=== PATIENT | male | born 1960 | race Caucasian/White ===

== ENCOUNTER 2021-03-21 00:11 | Observation (INO) | payer BC ==
[2021-03-21] MEDS ORDERED: SODIUM CHLORIDE 0.9% 1,000 ML IV STA (00:36)
--- NOTE | 2021-03-21 00:40 | ED ---
Recheck HPI - General Chief Complaint: Altered Mental Status Stated Complaint: Poss CVA Time Seen by Provider: 03/21/21 00:23 Source: patient, family, RN notes reviewed, old records reviewed Mode of arrival: EMS Limitations: altered mental status, physical limitation - History of Present Illness Initial Comments: This is a 52-year-old male has a history of high blood pressure high cholesterol coming in for neurological complaint likely CVA. Patient is accepted from outside facility for evaluation by neurology regarding stroke. Patient has been acting increasingly strange for the last 4 days both by work and his 's standards. Speaking inappropriately saying things at all makes sense laughing and chronic and can sometimes even crying uncontrollably. Patient has been going through activities of daily living. Patient herself has no complaints but is a poor strain secondary to clinical condition MD Complaint: other (Likely CVA) -: days(s) (4) Symptoms Since Prior Visit: no new symptoms Context: other (none) Associated Symptoms: none Treatments Prior to Arrival: other (none) - Related Data Allergies Allergy/AdvReac Type Severity Reaction Status Date / Time No Known Allergies Allergy Verified 03/21/21 00:31 Review of Systems ROS Statement: Those systems with pertinent positive or pertinent negative responses have been documented in the HPI. ROS Other: All systems not noted in ROS Statement are negative. Past Medical History Past Medical History: Hypertension History of Any Multi-Drug Resistant Organisms: None Reported Past Surgical History: Joint Replacement Past Psychological History: Anxiety Smoking Status: Former smoker Past Alcohol Use History: Occasional General Exam - General Exam Comments Initial Comments: NIH of 4 Both expressive and receptive aphasia Symptoms for 4 days Limitations: altered mental status, physical limitation General appearance: alert, in no apparent distress Head exam: Present: atraumatic, normocephalic, normal inspection Eye exam: Present: normal appearance, PERRL, EOMI. Absent: scleral icterus, conjunctival injection, periorbital swelling ENT exam: Present: normal exam, mucous membranes moist Neck exam: Present: normal inspection. Absent: tenderness, meningismus, lymphadenopathy Respiratory exam: Present: normal lung sounds bilaterally. Absent: respiratory distress, wheezes, rales, rhonchi, stridor Cardiovascular Exam: Present: regular rate, normal rhythm, normal heart sounds. Absent: systolic murmur, diastolic murmur, rubs, gallop, clicks GI/Abdominal exam: Present: soft, normal bowel sounds. Absent: distended, tenderness, guarding, rebound, rigid Extremities exam: Present: normal inspection, full ROM, normal capillary refill. Absent: tenderness, pedal edema, joint swelling, calf tenderness Back exam: Present: normal inspection Neurological exam: Present: alert, oriented X3, CN II-XII intact Psychiatric exam: Present: normal affect, normal mood Skin exam: Present: warm, dry, intact, normal color. Absent: rash Course Vital Signs 03/21/21 03/21/21 00:21 01:36 Temperature 98 F Pulse Rate 82 83 Respiratory 18 18 Rate Blood Pressure 163/94 153/93 O2 Sat by Pulse 97 98 Oximetry - Reevaluation(s) Reevaluation #1: 03/21/21 03:13 Medical record is reviewed 03/21/21 03:14 History paperwork is reviewed and did speak with transferring physician 03/21/21 03:15 TP candidate secondary to a transfer, B4 days of symptoms Reevaluation #2: 03/21/21 03:14 Patient has no improvement in neurological complaint here in the ER Reevaluation #3: 03/21/21 03:14 Family members at bedside informed of results - Consultations Consultation #1: Spoke with [facility] who will admit the [facility] Medical Decision Making - Medical Decision Making 52 male accepted in transfer for evaluation regarding altered mental status. Patient does have both expressive and receptive aphasia, will admit for neurology to evaluate, blood pressure is much improved from initial hypertensive crisis at outside facility. Patient will admit for neurology to evaluate - Lab Data Result diagrams: 03/21/21 00:50 03/21/21 00:50 Lab Results 03/21/21 03/21/21 03/21/21 Range/Units 00:50 00:50 00:50 WBC 9.5 (3.8-10.6) k/uL RBC 4.72 (4.30-5.90) m/uL Hgb 14.1 (13.0-17.5) gm/dL Hct 43.0 (39.0-53.0) % MCV 91.1 (80.0-100.0) fL MCH 29.9 (25.0-35.0) pg MCHC 32.9 (31.0-37.0) g/dL RDW 11.7 (11.5-15.5) % Plt Count 296 (150-450) k/uL MPV 7.3 Neutrophils % 80 % Lymphocytes % 12 % Monocytes % 5 % Eosinophils % 1 % Basophils % 1 % Neutrophils # 7.6 (1.3-7.7) k/uL Lymphocytes # 1.2 (1.0-4.8) k/uL Monocytes # 0.5 (0-1.0) k/uL Eosinophils # 0.1 (0-0.7) k/uL Basophils # 0.1 (0-0.2) k/uL PT 10.1 (9.0-12.0) sec INR 0.9 (<1.2) APTT 21.1 L (22.0-30.0) sec VBG pH (7.31-7.41) VBG pCO2 (37-51) mmHg VBG HCO3 (24-28) mmol/L Sodium (137-145) mmol/L Potassium (3.5-5.1) mmol/L Chloride (98-107) mmol/L Carbon Dioxide (22-30) mmol/L Anion Gap mmol/L BUN (9-20) mg/dL Creatinine (0.66-1.25) mg/dL Est GFR (CKD-EPI)AfAm (>60 ml/min/1.73 sqM) Est GFR (CKD-EPI)NonAf (>60 ml/min/1.73 sqM) Glucose (74-99) mg/dL Calcium (8.4-10.2) mg/dL Total Bilirubin (0.2-1.3) mg/dL AST (17-59) U/L ALT (4-49) U/L Alkaline Phosphatase (38-126) U/L Ammonia (<30) umol/L Troponin I (0.000-0.034) ng/mL Total Protein (6.3-8.2) g/dL Albumin (3.5-5.0) g/dL Urine Color Yellow Urine Appearance Clear (Clear) Urine pH 5.5 (5.0-8.0) Ur Specific Barrow 1.015 (1.001-1.035) Urine Protein Negative (Negative) Urine Glucose (UA) Negative (Negative) Urine Ketones 1+ H (Negative) Urine Blood Negative (Negative) Urine Nitrite Negative (Negative) Urine Bilirubin Negative (Negative) Urine Urobilinogen <2.0 (<2.0) mg/dL Ur Leukocyte Esterase Negative (Negative) Salicylates mg/dL Urine Opiates Screen Not Detected (NotDetected) Ur Oxycodone Screen Not Detected (NotDetected) Urine Methadone Screen Not Detected (NotDetected) Ur Propoxyphene Screen Not Detected (NotDetected) Acetaminophen ug/mL Ur Barbiturates Screen Not Detected (NotDetected) U Tricyclic Antidepress Not Detected (NotDetected) Ur Phencyclidine Scrn Not Detected (NotDetected) Ur Amphetamines Screen Not Detected (NotDetected) U Methamphetamines Scrn Not Detected (NotDetected) U Benzodiazepines Scrn Not Detected (NotDetected) Urine Cocaine Screen Not Detected (NotDetected) U Marijuana (THC) Screen Not Detected (NotDetected) Serum Alcohol mg/dL Coronavirus (PCR) (Not Detectd) 03/21/21 03/21/21 03/21/21 Range/Units 00:50 00:50 00:50 WBC (3.8-10.6) k/uL RBC (4.30-5.90) m/uL Hgb (13.0-17.5) gm/dL Hct (39.0-53.0) % MCV (80.0-100.0) fL MCH (25.0-35.0) pg MCHC (31.0-37.0) g/dL RDW (11.5-15.5) % Plt Count (150-450) k/uL MPV Neutrophils % % Lymphocytes % % Monocytes % % Eosinophils % % Basophils % % Neutrophils # (1.3-7.7) k/uL Lymphocytes # (1.0-4.8) k/uL Monocytes # (0-1.0) k/uL Eosinophils # (0-0.7) k/uL Basophils # (0-0.2) k/uL PT (9.0-12.0) sec INR (<1.2) APTT (22.0-30.0) sec VBG pH (7.31-7.41) VBG pCO2 (37-51) mmHg VBG HCO3 (24-28) mmol/L Sodium 137 (137-145) mmol/L Potassium 4.2 (3.5-5.1) mmol/L Chloride 104 (98-107) mmol/L Carbon Dioxide 22 (22-30) mmol/L Anion Gap 11 mmol/L BUN 16 (9-20) mg/dL Creatinine 1.03 (0.66-1.25) mg/dL Est GFR (CKD-EPI)AfAm >90 (>60 ml/min/1.73 sqM) Est GFR (CKD-EPI)NonAf 80 (>60 ml/min/1.73 sqM) Glucose 97 (74-99) mg/dL Calcium 9.5 (8.4-10.2) mg/dL Total Bilirubin 1.2 (0.2-1.3) mg/dL AST 33 (17-59) U/L ALT 17 (4-49) U/L Alkaline Phosphatase 77 (38-126) U/L Ammonia <9 (<30) umol/L Troponin I <0.012 (0.000-0.034) ng/mL Total Protein 7.6 (6.3-8.2) g/dL Albumin 4.4 (3.5-5.0) g/dL Urine Color Urine Appearance (Clear) Urine pH (5.0-8.0) Ur Specific Barrow (1.001-1.035) Urine Protein (Negative) Urine Glucose (UA) (Negative) Urine Ketones (Negative) Urine Blood (Negative) Urine Nitrite (Negative) Urine Bilirubin (Negative) Urine Urobilinogen (<2.0) mg/dL Ur Leukocyte Esterase (Negative) Salicylates 1.1 mg/dL Urine Opiates Screen (NotDetected) Ur Oxycodone Screen (NotDetected) Urine Methadone Screen (NotDetected) Ur Propoxyphene Screen (NotDetected) Acetaminophen <10.0 ug/mL Ur Barbiturates Screen (NotDetected) U Tricyclic Antidepress (NotDetected) Ur Phencyclidine Scrn (NotDetected) Ur Amphetamines Screen (NotDetected) U Methamphetamines Scrn (NotDetected) U Benzodiazepines Scrn (NotDetected) Urine Cocaine Screen (NotDetected) U Marijuana (THC) Screen (NotDetected) Serum Alcohol <10 mg/dL Coronavirus (PCR) (Not Detectd) 03/21/21 03/21/21 Range/Units 01:00 01:09 WBC (3.8-10.6) k/uL RBC (4.30-5.90) m/uL Hgb (13.0-17.5) gm/dL Hct (39.0-53.0) % MCV (80.0-100.0) fL MCH (25.0-35.0) pg MCHC (31.0-37.0) g/dL RDW (11.5-15.5) % Plt Count (150-450) k/uL MPV Neutrophils % % Lymphocytes % % Monocytes % % Eosinophils % % Basophils % % Neutrophils # (1.3-7.7) k/uL Lymphocytes # (1.0-4.8) k/uL Monocytes # (0-1.0) k/uL Eosinophils # (0-0.7) k/uL Basophils # (0-0.2) k/uL PT (9.0-12.0) sec INR (<1.2) APTT (22.0-30.0) sec VBG pH 7.56 H (7.31-7.41) VBG pCO2 22 L (37-51) mmHg VBG HCO3 19 L (24-28) mmol/L Sodium (137-145) mmol/L Potassium (3.5-5.1) mmol/L Chloride (98-107) mmol/L Carbon Dioxide (22-30) mmol/L Anion Gap mmol/L BUN (9-20) mg/dL Creatinine (0.66-1.25) mg/dL Est GFR (CKD-EPI)AfAm (>60 ml/min/1.73 sqM) Est GFR (CKD-EPI)NonAf (>60 ml/min/1.73 sqM) Glucose (74-99) mg/dL Calcium (8.4-10.2) mg/dL Total Bilirubin (0.2-1.3) mg/dL AST (17-59) U/L ALT (4-49) U/L Alkaline Phosphatase (38-126) U/L Ammonia (<30) umol/L Troponin I (0.000-0.034) ng/mL Total Protein (6.3-8.2) g/dL Albumin (3.5-5.0) g/dL Urine Color Urine Appearance (Clear) Urine pH (5.0-8.0) Ur Specific Barrow (1.001-1.035) Urine Protein (Negative) Urine Glucose (UA) (Negative) Urine Ketones (Negative) Urine Blood (Negative) Urine Nitrite (Negative) Urine Bilirubin (Negative) Urine Urobilinogen (<2.0) mg/dL Ur Leukocyte Esterase (Negative) Salicylates mg/dL Urine Opiates Screen (NotDetected) Ur Oxycodone Screen (NotDetected) Urine Methadone Screen (NotDetected) Ur Propoxyphene Screen (NotDetected) Acetaminophen ug/mL Ur Barbiturates Screen (NotDetected) U Tricyclic Antidepress (NotDetected) Ur Phencyclidine Scrn (NotDetected) Ur Amphetamines Screen (NotDetected) U Methamphetamines Scrn (NotDetected) U Benzodiazepines Scrn (NotDetected) Urine Cocaine Screen (NotDetected) U Marijuana (THC) Screen (NotDetected) Serum Alcohol mg/dL Coronavirus (PCR) Not Detected (Not Detectd) - EKG Data -: EKG Interpreted by Me (EKG shows sinus rhythm 70. 128 QRS 60 CA QTc 451) - Radiology Data Radiology results: report reviewed (CT brain CT had neck is negative for acute disease), image reviewed Disposition Clinical Impression: Altered mental status, CVA (cerebral vascular accident), Hypertensive emergency Disposition: ADMITTED IP TO THIS [facility] Condition: Fair Is patient prescribed a controlled substance at d/c from ED?: No Referrals: Alexander Mar MD [Primary Care Provider] - 1-2 days
[2021-03-21 01:15] LABS: Basophils # (A) 0.1 k/uL (0-0.2); Basophils % (A) 1 %; Eosinophils # (A) 0.1 k/uL (0-0.7); Eosinophils % (A) 1 %; HGB 14.1 gm/dL (13.0-17.5); Lymphocytes # (A) 1.2 k/uL (1.0-4.8); Lymphocytes % (A) 12 %; MCH 29.9 pg (25.0-35.0); MCHC 32.9 g/dL (31.0-37.0); MCV 91.1 fL (80.0-100.0); Mean Platelet Volume 7.3; Monocytes # (A) 0.5 k/uL (0-1.0); Monocytes % (A) 5 %; Neutrophils # (A) 7.6 k/uL (1.3-7.7); Neutrophils % (A) 80 %; Platelet Count 296 k/uL (150-450); RBC 4.72 m/uL (4.30-5.90); RDW 11.7 % (11.5-15.5); WBC 9.5 k/uL (3.8-10.6)
[2021-03-21 01:32] LABS: INR 0.9 (<1.2); Partial Thromboplastin Time 21.1 sec (22.0-30.0); Prothrombin Time 10.1 sec (9.0-12.0)
[2021-03-21 01:33] LABS: ALT 17 U/L (4-49); AST 33 U/L (17-59); Acetaminophen <10.0 ug/mL; African American GFR (CKD) >90 (>60 ml/min/1.73 sqM); Albumin 4.4 g/dL (3.5-5.0); Alcohol <10 mg/dL; Alkaline Phosphatase 77 U/L (38-126); Anion Gap 11 mmol/L; Blood Urea Nitrogen 16 mg/dL (9-20); Calcium 9.5 mg/dL (8.4-10.2); Carbon Dioxide 22 mmol/L (22-30); Chloride 104 mmol/L (98-107); Glucose 97 mg/dL (74-99); Non-African American GFR(CKD) 80 (>60 ml/min/1.73 sqM); Salicylate 1.1 mg/dL; Sodium 137 mmol/L (137-145); Total Bilirubin 1.2 mg/dL (0.2-1.3); Total Protein 7.6 g/dL (6.3-8.2)
[2021-03-21 01:35] LABS: Potassium 4.2 mmol/L (3.5-5.1)
[2021-03-21 01:42] LABS: VBG PH 7.56 (7.31-7.41)
--- NOTE | 2021-03-21 02:09 | CT ---
EXAMINATION TYPE: CT brain wo con DATE OF EXAM: 03/21/2021 COMPARISON: None HISTORY: ams CT DLP: 1652.3 mGycm Automated exposure control for dose reduction was used. Images obtained of the brain without contrast. There is cerebral cortical atrophy. There is no mass effect nor midline shift. There is no sign of in tracranial hemorrhage. Calvarium is intact. IMPRESSION: Cerebral atrophy. No acute intracranial abnormality.
--- NOTE | 2021-03-21 02:25 | CT ---
EXAMINATION TYPE: CT angio head neck DATE OF EXAM: 03/21/2021 COMPARISON: None HISTORY: stroke CT DLP: 1652.3 mGycm Automated exposure control for dose reduction was used. CONTRAST: Performed with IV Contrast, patient injected with 65 mL of Isovue 370. Images obtained from the aortic arch to the vertex of the brain with IV contrast. There is normal branching pattern of the great vessels on the aortic arch. There is bilateral arteria l flow in the subclavian arteries. There is arterial flow in the common internal and external carotid arteries bilaterally. There is arterial flow in the vertebral arteries. Left vertebral artery is lar nidia than the right. There is minimal plaque at the carotid artery bifurcations. There is less than 10 % stenosis on the right side and less than 5% stenosis on the left side. There is no evidence of prasad tid or vertebral artery aneurysm or dissection. There is arterial flow in the vertebrobasilar artery system. There is some ectasia of the intracrania l internal carotid arteries. There is arterial flow in the anterior middle and posterior cerebral art eries. I see no evidence of intracranial arterial stenosis. There is no mass effect. There is no evid ence of intracranial aneurysm or neovascularity. There is normal enhancement of the venous sinuses. IMPRESSION: Negative CT angiogram of the brain. Minimal plaque at the carotid artery bifurcations without any significant stenosis.
[2021-03-21 03:04] LABS: Amphetamine Screen,Urine Not Detected (NotDetected); Barbiturate Screen,Urine Not Detected (NotDetected); Benzodiazepines Screen,Urine Not Detected (NotDetected); Cocaine Screen,Urine Not Detected (NotDetected); Methadone Screen, Urine Not Detected (NotDetected); Opiate Screen,Urine Not Detected (NotDetected); Oxycodone Screen, Urine Not Detected (NotDetected); Phencyclidine Screen,Urine Not Detected (NotDetected); Tricyclic Antidepressant,Urine Not Detected (NotDetected); Urn Cannabinoid Scrn Not Detected (NotDetected)
[2021-03-21 03:07] LABS: Appearance,Urine Clear (Clear); Bilirubin,Urine Negative (Negative); Blood,Urine Negative (Negative); Color,Urine Yellow; Glucose,Urine (UA) Negative (Negative); Ketones,Urine 1+ (Negative); Leukocyte Esterase,Urine Negative (Negative); Nitrite,Urine Negative (Negative); PH, Urine 5.5 (5.0-8.0); Protein,Urine Negative (Negative); Specific Gravity,Urine 1.015 (1.001-1.035); Urobilinogen,Urine <2.0 mg/dL (<2.0)
[2021-03-21] MEDS ORDERED: ASPIRIN 325 MG TAB PO STA (03:16)
[2021-03-21] MEDS: SODIUM CHLORIDE 0.9% 1,000 ML IV SCH ×2 (05:36→17:00)
[2021-03-21] MEDS: lamoTRIgine 100 MG TAB PO SCH (13:15)
[2021-03-21] MEDS: HEPARIN SODIUM,PORCINE/PF 5,000 UNIT/0.5 ML SYRINGE SQ SCH ×2 (13:22→20:24)
[2021-03-21] MEDS: FAMOTIDINE 20 MG/2 ML VIAL IV SCH ×2 (13:22→20:24)
[2021-03-21] MEDS: lisinopriL 20 MG TAB PO SCH (13:23)
[2021-03-21] MEDS: hydroCHLOROthiazide 12.5 MG CAP PO SCH (13:23)
[2021-03-21 16:33] LABS: Glucose,Whole Blood 83 mg/dL (75-99)
--- NOTE | 2021-03-21 17:08 | ECHOF ---
Referral Reason:Thrombus MEASUREMENTS -------- HEIGHT: 167.6 cm WEIGHT: 104.3 kg BP: 159/96 RVIDd: 3.2 cm (< 3.3) IVSd: 1.4 cm (0.6 - 1.1) LVIDd: 3.9 cm (3.9 - 5.3) LVPWd: 1.5 cm (0.6 - 1.1) IVSs: 1.9 cm LVIDs: 2.6 cm LVPWs: 1.7 cm LA Diam: 3.1 cm (2.7 - 3.8) Ao Diam: 2.8 cm (2.0 - 3.7) AV Cusp: 1.7 cm (1.5 - 2.6) MV EXCURSION: 13.883 mm (> 18.000) MV EF SLOPE: 42 mm/s (70 - 150) EPSS: 0.9 cm MV E Hector: 1.03 m/s MV DecT: 214 ms MV A Hector: 1.22 m/s MV E/A Ratio: 0.85 FINDINGS -------- Resting tachycardia (HR>100bpm). This was a technically adequate study. The left ventricular size is normal. There is moderate concentric left ventricular hypertrophy. O verall left ventricular systolic function is normal with, an EF between 60 - 65 %. The right ventricle is normal in size. Normal LA size by volume 22+/-6 ml/m2. The right atrium is normal in size. Interatrial and interventricular septum intact. The aortic valve is trileaflet, and appears structurally normal. No aortic stenosis or regurgitation. The mitral valve is normal. The tricuspid valve appears structurally normal. Unable to estimate RVSP due to inadequate TR jet s pectral doppler profile. Trace/mild (physiologic) pulmonic regurgitation. The aortic root size is normal. Normal inferior vena cava with normal inspiratory collapse consistent with estimated right atrial pre ssure of 5 mmHg. There is no pericardial effusion. CONCLUSIONS -------- 1. The left ventricular size is normal. 2. There is moderate concentric left ventricular hypertrophy. 3. Overall left ventricular systolic function is normal with, an EF between 60 - 65 %. 4. The aortic valve is trileaflet, and appears structurally normal. No aortic stenosis or regurgitati on. 5. Trace/mild (physiologic) pulmonic regurgitation. 6. There is no pericardial effusion. MANAGER WAREHOUSE: Fidelia Lee RDCS
[2021-03-21 20:21] LABS: Glucose,Whole Blood 152 mg/dL (75-99)
[2021-03-21] MEDS: ATORVASTATIN 40 MG TAB PO SCH (20:24)
[2021-03-22 00:20] LABS: Folate, Serum 14.3 ng/mL (4.40-31.00)
[2021-03-22] MEDS: SODIUM CHLORIDE 0.9% 1,000 ML IV SCH ×3 (05:43→20:52)
--- NOTE | 2021-03-22 09:20 | P.CNNES ---
History of Present Illness Consult date: 03/21/21 Requesting physician: Sergei Oropeza Reason for Consult: CVA History of Present Illness: This is a Tele-neurology consultation performed today on 03/21/2021. 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 EMS flow sheet not available in the chart. Patient not able to provide any history. Patient's was present, who provided the history. Patient apparently has been "not acting like himself" since last Tuesday evening, 03/18/2021. He appears more disoriented. He responds to sentences like stalling. He blurts out words and sentences, like "I know who did it". Or he would say "I know who is trying to get me", or "I know who did it", and he refers to his coworker. He is also paranoid, like something is going to attack him. He believes his boss, his , and his daughter are after him, someone is trying to put a sting on him. No report of hallucinations. He has not started any new medication. Patient has been on lamotrigine for anxiety for long time. He is under a lot of stress at work for last couple years. Last night he did not sleep, as he would continue to blurt out words. Therefore his brought him to the hospital. No report of problem with balance except for his baseline problem with his hip. No slurred speech, facial droop, or any visual issues reported. Patient's boss and coworkers also have reported that he is not acting right. He never had this kind of episode before. He is otherwise healthy and active. He socially drinks, does not smoke, no report of any injury or fall or concussion. Patient's denies any history of diagnosis of depression although she does feel that he may be depressed a bit. Patient's blood pressure at the home was very elevated, 228/100. Vital signs on arrival blood pressure 163/94, pulse rate 82, temperature 98.0. Patient's blood test shows normal CBC, PT/PTT, normal chem 20, negative troponin. Urine drug screen is negative. Blood alcohol level negative. Martinez virus PCR negative. Patient's computed tomography scan of head showed cerebral atrophy, no acute process. CTA of the head and neck revealed minimal plaque at the carotid artery bifurcations without any significant stenosis. Negative CTA of the brain. EKG shows normal sinus rhythm, minimal voltage criteria for LVH. Patient's home medications include Lamictal 150 mg daily, Crestor 20 mg, etc. seen 10 mg, lisinopril 20 mg, HCTZ 12.5 mg and ibuprofen. Patient does not take any antiplatelet medication at home. Patient does have hypertension. No diabetes. Review of Systems Patient denies headache. No fever or chills. Denies any problem with balance besides the problem with the hip. Patient did not elect to answer for any other review of systems because of his mentation. Past Medical History Past Medical History: Hypertension History of Any Multi-Drug Resistant Organisms: None Reported Past Surgical History: Joint Replacement Past Psychological History: Anxiety Smoking Status: Former smoker Past Alcohol Use History: Occasional Medications and Allergies Home Medications Medication Instructions Recorded Confirmed Type Cetirizine HCl 10 mg PO DAILY PRN 03/21/21 03/21/21 History Ibuprofen [Motrin Ib] 800 mg PO Q8H PRN 03/21/21 03/21/21 History Rosuvastatin [Crestor] 20 mg PO HS 03/21/21 03/21/21 History hydroCHLOROthiazide [Hydrodiuril] 12.5 mg PO DAILY 03/21/21 03/21/21 History lamoTRIgine [LaMICtal] 150 mg PO DAILY 03/21/21 03/21/21 History lisinopriL 20 mg PO DAILY 03/21/21 03/21/21 History Allergies Allergy/AdvReac Type Severity Reaction Status Date / Time No Known Allergies Allergy Verified 03/21/21 07:49 Physical Examination - Vital Signs Vital Signs: Vital Signs Temp Pulse Resp BP Pulse Ox 03/21/21 07:31 98.4 F 87 16 140/91 98 03/21/21 05:33 86 18 159/96 99 03/21/21 01:36 83 18 153/93 98 03/21/21 00:21 98 F 82 18 163/94 97 Intake and Output 03/20/21 03/21/21 03/21/21 22:59 06:59 14:59 Other: Weight 104.326 kg Patient is a middle aged male, in no acute distress. Patient has a flat affect. Patient is alert awake, had slow mentation, often prolonged latency time to answer questions. Patient would look at you and appears that he does not want to answer. Patient knows his name and states it is March and the year is 2020 and that he is in [facility]. He knows name of the current presid ent Smith Oliveira. Speech and language functions are normal. Attention, concentration and fund of knowledge is limited. When I asked the patient if he had any headaches, patient replied "just my ", and then started smiling. He admits to the hip hurting. Patient states his hip surgery was on 04/03/1996, although it was just last year on 04/15/2020. On cranial examination, pupils are equal, round and reacting to light. Patient elects not to answer or respond for visual field testing. His extraocular muscles are intact with no nystagmus. Face is symmetric. Patient would not elect to protrude out his tongue despite multiple attempts by us and even patient's . He did not cooperate for testing for palatal elevation or sensation. His hearing and shoulder shrug normal. On muscle strength testing, there is no pronator drift and the strength is normal in arms and legs distally and proximally, except left hip flexion which is slightly weak likely related to previous hip issues. Deep tendon reflexes are symmetric, 2 at the biceps, 1 bit radialis 1 at the knees and plantars are withdrawal bilaterally. Sensory to touch is equal with no neglect. Cerebellar function showed no ataxia for [id number] testing. Tone and bulk of muscles normal. Gait not checked. On general examination, there is no carotid bruit or murmur, S1-S2 audible. Abdomen is soft nontender. Chest is clear. Peripheral pulses are present. No edema. Results - Laboratory Findings CBC and BMP: 03/21/21 00:50 03/21/21 00:50 Abnormal Lab Findings: Abnormal Labs 03/21/21 03/21/21 03/21/21 00:50 00:50 01:00 APTT 21.1 L VBG pH 7.56 H VBG pCO2 22 L VBG HCO3 19 L Urine Ketones 1+ H Assessment and Plan Assessment: * 60-year-old male with 3 day history of acute onset of altered mental status, paranoia with delusions. Patient neurological examination is nonfocal. However he has a very flat affect, blurts out sentences randomly, not related to the situation. Patient is showing odd behavior, as he would cooperate with certain aspects of examination and obviously declines to cooperate with some other aspects of examination (like visual lr, checking for tongue protrusion). Rule out acute psychosis, depression. CVA or encephalitis much less likely. No signs of infection. * Hypertension Plan: * Patient will undergo MRI of the brain to rule out an acute stroke or other structural abnormality. * B12, folate, TSH, RPR, lipid panel, Lamictal level, lipid panel. Ammonia is normal <9 * Psychiatric consultation for altered mental status, rule out depression with psychosis. * Start aspirin 325 mg daily. * We will follow. Thank you for the consult.
--- NOTE | 2021-03-22 09:38 | P.HPIM ---
History of Present Illness This is a pleasant 60 years old male with past medical history of hypertension, hyperlipidemia. Patient is accepted from outside facility for evaluation by neurology regarding stroke. Patient has been acting increasingly strange for the last 4 days both by work and his 's standards. Speaking inappropriately saying things at all makes sense laughing and chronic and can sometimes even crying uncontrollably. Patient was transferred from [facility] for possible CVA/altered mental status, Versus a strange behavior. Patient is poor historian and information were obtained with the help with his at bedside. She states this started last Tuesday about 3-4 days ago, where he stopped treating his vital which usu ally he does. He wasn't eating and he did not wish TV and the news which is something he does every day. And when he went to work her coworkers called her stating that his behavioral strange as well. Patient sitting,, sometimes stairs at me and does not answer my questions promptly, I have to repeated 2-3 times. Sometimes his answers are unrelated to the questions. However he knows he is in [facility] he knew the date of the name of the president. He denies headache, weakness or numbness in extremities. No blurred vision or slurred speech. He is on Lamictal for mood and diagnosed with anxiety before, he is taken for many years and not sure if he has a psychiatrist. Hemodynamically stable, blood pressure this morning is 140/91 Labs including CBC, INR, BMP and liver enzymes are unremarkable. Urinalysis showed 1+ ketone otherwise is unremarkable. Salicylate is negative at 1.1, seroma: Less than 10. Urine drug screen is negative. Acetaminophen blood is less than 10. Coronavirus not detected EKG showing normal sinus rhythm at 85, no significant ST T changes. CTA of the head and neck is negative CT of brain: No acute process. Cerebral atrophy in Emergency room he received aspirin 325 mg. And admitted with a neurology consult. Review of Systems CONSTITUTIONAL: No fever, no malaise, no fatigue. HEENT: No recent visual problems or hearing problems. Denied any sore throat. CARDIOVASCULAR: No orthopnea, PND, no palpitations, no syncope. PULMONARY: No shortness of breath, no cough, no hemoptysis. GASTROINTESTINAL: No diarrhea, no nausea, no vomiting, no abdominal pain. Normoactive bowel sounds. NEUROLOGICAL: No headaches, no weakness, no numbness. HEMATOLOGICAL: Denies any bleeding or petechiae. GENITOURINARY: Denies any burning micturition, frequency, or urgency. MUSCULOSKELETAL/RHEUMATOLOGICAL: Denies any joint pain, swelling, or any muscle pain. ENDOCRINE: Denies any polyuria or polydipsia. Past Medical History Past Medical History: Hypertension History of Any Multi-Drug Resistant Organisms: None Reported Past Surgical History: Joint Replacement Past Psychological History: Anxiety Smoking Status: Former smoker Past Alcohol Use History: Occasional Medications and Allergies Home Medications Medication Instructions Recorded Confirmed Type Cetirizine HCl 10 mg PO DAILY PRN 03/21/21 03/21/21 History Ibuprofen [Motrin Ib] 800 mg PO Q8H PRN 03/21/21 03/21/21 History Rosuvastatin [Crestor] 20 mg PO HS 03/21/21 03/21/21 History hydroCHLOROthiazide [Hydrodiuril] 12.5 mg PO DAILY 03/21/21 03/21/21 History lamoTRIgine [LaMICtal] 150 mg PO DAILY 03/21/21 03/21/21 History lisinopriL 20 mg PO DAILY 03/21/21 03/21/21 History Allergies Allergy/AdvReac Type Severity Reaction Status Date / Time No Known Allergies Allergy Verified 03/21/21 07:49 Physical Exam Vitals: Vital Signs Temp Pulse Resp BP Pulse Ox 03/21/21 07:31 98.4 F 87 16 140/91 98 03/21/21 05:33 86 18 159/96 99 03/21/21 01:36 83 18 153/93 98 03/21/21 00:21 98 F 82 18 163/94 97 Intake and Output 03/20/21 03/21/21 03/21/21 22:59 06:59 14:59 Other: Weight 104.326 kg -GENERAL: The patient is alert and oriented x3, not in any acute distress. obese . Staring and time and answers questions inappropriately at times. HEENT: Pupils are round and equally reacting to light. EOMI. No scleral icterus. No conjunctival pallor. Normocephalic, atraumatic. No pharyngeal erythema. No thyromegaly. CARDIOVASCULAR: S1 and S2 present. No murmurs, rubs, or gallops. PULMONARY: Chest is clear to auscultation, no wheezing or crackles. ABDOMEN: Soft, nontender, nondistended, normoactive bowel sounds. No palpable organomegaly. MUSCULOSKELETAL: No joint swelling or deformity. EXTREMITIES: No cyanosis, clubbing, or pedal edema. NEUROLOGICAL: Gross neurological examination did not reveal any focal deficits. SKIN: No rashes. No petechiae Results CBC & Chem 7: 03/21/21 00:50 03/21/21 00:50 Labs: Abnormal Lab Results - Last 24 Hours (Table) 03/21/21 03/21/21 03/21/21 Range/Units 00:50 00:50 01:00 APTT 21.1 L (22.0-30.0) sec VBG pH 7.56 H (7.31-7.41) VBG pCO2 22 L (37-51) mmHg VBG HCO3 19 L (24-28) mmol/L Urine Ketones 1+ H (Negative) Assessment and Plan Assessment: Altered mental status, rule out stroke. Versus strange behavior Hypertension Hyperlipidemia Obese with BMI of 36.3 Plan: This is a pleasant 60 years old male who presents with altered mental status, rule out stroke. Continue with the neuro check Continue with aspirin Follow-up echocardiogram Neurology consult Labs and medication were reviewed.. Continue same treatment. Continue with symptomatic treatment. Resume home medication. Monitor lytes and vitals. DVT and GI prophylaxis. Further recommendations depends on the clinical course of the patient DVT prophylaxis: Subcutaneous heparin GI Prophylaxis: Pepcid PT/OT: Pending Prognosis is guarded
--- NOTE | 2021-03-22 09:46 | P.PN ---
Subjective This is a pleasant 60 years old male with past medical history of hypertension, hyperlipidemia. Patient is accepted from outside facility for evaluation by neurology regarding stroke. Patient has been acting increasingly strange for the last 4 days both by work and his 's standards. Speaking inappropriately saying things at all makes sense laughing and chronic and can sometimes even crying uncontrollably. Patient was transferred from [facility] for possible CVA/altered mental status, Versus a strange behavior. Patient is poor historian and information were obtained with the help with his at bedside. She states this started last Tuesday about 3-4 days ago, where he stopped treating his vital which usually he does. He wasn't eating and he did not wish TV and the news which is something he does every day. And when he went to work her coworkers called her stating that his behavioral strange as well. Patient sitting,, sometimes stairs at me and does not answer my questions promptly, I have to repeated 2-3 times. Sometimes his answers are unrelated to the questions. However he knows he is in [facility] he knew the date of the name of the president. He denies headache, weakness or numbness in extre mities. No blurred vision or slurred speech. He is on Lamictal for mood and diagnosed with anxiety before, he is taken for many years and not sure if he has a psychiatrist. Hemodynamically stable, blood pressure this morning is 140/91 Labs including CBC, INR, BMP and liver enzymes are unremarkable. Urinalysis showed 1+ ketone otherwise is unremarkable. Salicylate is negative at 1.1, seroma: Less than 10. Urine drug screen is negative. Acetaminophen blood is less than 10. Coronavirus not detected EKG showing normal sinus rhythm at 85, no significant ST T changes. CTA of the head and neck is negative CT of brain: No acute process. Cerebral atrophy in Emergency room he received aspirin 325 mg. And admitted with a neurology consult. 03/22/2021 Today when I walked into the room patient was laughing loudly with no apparent reason, as per at bedside he would be reluctant for 5 minutes and then started crying hardly and with a few minutes he got very angry and argumentative without violence. Patient sitting in chair comfortable, he looks oriented to the place, time and person. He denies visual or auditory hallucination or delusions. He denies headache or weakness or numbness. No blurred vision. No chest pain or dyspnea. Vitals are stable. B12 is 412. Folate is 14.3 and TSH normal at 1.5 treponema pallidum antibodies were nonreactive. is sitting at bedside all time, and states if she is going to leave her son will come to visit with his father. Discussed with staff will need to consider a family leave. Patient does not look to have capacity to make medical decision. If patient tries to leave then he cannot leave AMA and need to be petitioned, discussed with the bedside nurse this morning echocardiogram showed ejection fraction of 60-65%. Objective - Vital Signs Vital signs: Vital Signs Temp 97.8 F 03/22/21 04:00 Pulse 75 03/22/21 04:00 Resp 16 03/22/21 04:00 BP 137/92 03/22/21 04:00 Pulse Ox 100 03/22/21 04:00 Intake & Output 03/21/21 03/21/21 03/22/21 06:59 18:59 06:59 Intake Total 0 300 Balance 0 300 Weight 104.326 kg 104.326 kg 102.1 kg Intake: IV 300 Sodium Chloride 0.9% 1, 300 000 ml @ 100 mls/hr IV . Q10H CHANTAL Rx#:[id number] Oral 0 Other: # Voids 1 - Exam -GENERAL: The patient is alert and oriented x3, not in any acute distress. obese. Staring and time and answers questions inappropriately at times. HEENT: Pupils are round and equally reacting to light. EOMI. No scleral icterus. No conjunctival pallor. Normocephalic, atraumatic. No pharyngeal erythema. No thyromegaly. CARDIOVASCULAR: S1 and S2 present. No murmurs, rubs, or gallops. PULMONARY: Chest is clear to auscultation, no wheezing or crackles. ABDOMEN: Soft, nontender, nondistended, normoactive bowel sounds. No palpable organomegaly. MUSCULOSKELETAL: No joint swelling or deformity. EXTREMITIES: No cyanosis, clubbing, or pedal edema. NEUROLOGICAL: Gross neurological examination did not reveal any focal deficits. SKIN: No rashes. No petechiae -Psychiatric: The bowel movement, laughing that time and crying at times and angry at other times. No hallucination. No delusion. No aggressive behavior - Labs CBC & Chem 7: 03/21/21 00:50 03/21/21 00:50 Labs: Abnormal Lab Results - Last 24 Hours (Table) 03/21/21 Range/Units 20:20 POC Glucose (mg/dL) 152 H (75-99) mg/dL Assessment and Plan Assessment: Altered mental status, rule out stroke. Versus strange behavior. Rule out Psychosis, anxiety or depression or other mental health illness Hypertension Hyperlipidemia Obese with BMI of 36.3 Plan: This is a pleasant 60 years old male who presents with altered mental status, rule out stroke. Continue with the neuro check Continue with aspirin Neurology consult Psychiatric consult called Patient cannot leave AMA and needed to be petitioned if he tries to do that. Please keep family member/sitter at bedside. Elopement precautions Labs and medication were reviewed.. Continue same treatment. Continue with symptomatic treatment. Resume home medication. Monitor lytes and vitals. DVT and GI prophylaxis. Further recommendations depends on the clinical course of the patient DVT prophylaxis: Subcutaneous heparin GI Prophylaxis: Pepcid PT/OT: Pending Prognosis is guarded
[2021-03-22] MEDS: HEPARIN SODIUM,PORCINE/PF 5,000 UNIT/0.5 ML SYRINGE SQ SCH ×2 (10:28→20:52)
[2021-03-22] MEDS: lisinopriL 20 MG TAB PO SCH (10:29)
[2021-03-22] MEDS: ASPIRIN 325 MG TAB PO SCH (10:29)
[2021-03-22] MEDS: hydroCHLOROthiazide 12.5 MG CAP PO SCH (10:29)
[2021-03-22] MEDS: lamoTRIgine 100 MG TAB PO SCH (10:29)
[2021-03-22] MEDS: FAMOTIDINE 20 MG TAB PO SCH ×2 (10:29→20:51)
[2021-03-22] MEDS: CYANOCOBALAMIN 500 MCG TAB PO SCH (10:31)
[2021-03-22 11:47] LABS: Glucose,Whole Blood 88 mg/dL (75-99)
[2021-03-22] MEDS: LORazepam 2 MG/ML INJ IV PRN (14:49)
[2021-03-22 15:13] LABS: Chol/HDL Ratio 2.82 Ratio; LDL Cholesterol,Calculated 75.8 mg/dL (0.0-131.0); VLDL Calculation 17.2 mg/dL (5.00-40.00)
[2021-03-22] MEDS ORDERED: lamoTRIgine 100 MG TAB PO STA (20:10)
[2021-03-22] MEDS ORDERED: OLANZapine 10 MG VIAL IM PRN (20:12)
[2021-03-22] MEDS ORDERED: OLANZapine 5 MG TAB PO PRN (20:12)
[2021-03-22] MEDS: ATORVASTATIN 40 MG TAB PO SCH (20:51)
[2021-03-22] MEDS ORDERED: LORazepam 2 MG/ML INJ IV STA (23:22)
[2021-03-23] MEDS: SODIUM CHLORIDE 0.9% 1,000 ML IV SCH ×2 (06:35→15:42)
[2021-03-23] MEDS: HEPARIN SODIUM,PORCINE/PF 5,000 UNIT/0.5 ML SYRINGE SQ SCH (07:53)
[2021-03-23] MEDS: lisinopriL 20 MG TAB PO SCH (07:54)
[2021-03-23] MEDS: LORazepam 2 MG/ML INJ IV PRN (07:54)
[2021-03-23] MEDS: FAMOTIDINE 20 MG TAB PO SCH (07:54)
[2021-03-23] MEDS: hydroCHLOROthiazide 12.5 MG CAP PO SCH (07:54)
[2021-03-23] MEDS: ASPIRIN 325 MG TAB PO SCH (07:54)
[2021-03-23] MEDS: CYANOCOBALAMIN 500 MCG TAB PO SCH (07:54)
--- NOTE | 2021-03-23 08:21 | P.PN ---
Subjective Progress Note Date: 03/22/21 This is a tele-neurologic follow-up performed today on 03/22/2021. Patient's was also present today. Patient continues to have verbal outbursts, in which he would speak random words. He does get periods of agitation in which he tries to get up and trips on his feet. Ativan helped with the agitation. Per his patient's , his yelling of blurting words is slightly worse. She mentions that this morning he cried for an hour for no apparent reason. Then he started laughing for quite some time. After giving Ativan, his yelling outbursts were improved. According to patient's , he was in [place] in [place], and he may have some component of PTSD. Still awaiting psych evaluation and MRI of the brain. Objective - Vital Signs Vital signs: Vital Signs Temp 98.0 F 03/22/21 14:50 Pulse 102 H 03/22/21 14:50 Resp 16 03/22/21 14:50 BP 149/103 03/22/21 14:50 Pulse Ox 95 03/22/21 14:50 Intake & Output 03/21/21 03/22/21 03/22/21 18:59 06:59 18:59 Intake Total 0 300 420 Balance 0 300 420 Weight 104.326 kg 102.1 kg Intake: IV 300 Sodium Chloride 0.9% 1, 300 000 ml @ 100 mls/hr IV . Q10H CHANTAL Rx#:[id number] Oral 0 420 Other: # Voids 1 2 - Exam Patient is alert and awake, sitting in the recliner. He had some unusual affect. Speech and language functions appears normal. Face is symmetric. Pupils are round and reactive to light. Today patient was willing to protrude out his tongue which he did not do yesterday. His strength is normal. - Labs CBC & Chem 7: 03/21/21 00:50 03/21/21 00:50 Labs: Abnormal Lab Results - Last 24 Hours (Table) 03/21/21 Range/Units 20:20 POC Glucose (mg/dL) 152 H (75-99) mg/dL Assessment and Plan Assessment: * 60-year-old male with 3 day history of acute onset of altered mental status, paranoia with delusions. Patient neurological examination is nonfocal. However he has a very flat affect, blurts out sentences randomly, not related to the situation. Patient is showing odd behavior, as he would cooperate with certain aspects of examination and obviously declines to cooperate with some other aspects of examination (like visual lr, checking for tongue protrusion). Rule out acute psychosis, depression. CVA or encephalitis much less likely. No signs of infection. * Hypertension Plan: * Await MRI of the brain to rule out an acute stroke or other structural abnormality. * All blood workup are normal. B12 412, folate 14.3, TSH 1.55, RPR nonreactive, lipid panel with cholesterol 144, LDL 75, HDL 51 and triglycerides 86, Lamictal level 4.2 which is therapeutic, not toxic at all. Ammonia is normal <9 * Await Psychiatric consultation for altered mental status, rule out depression with psychosis. * Start aspirin 325 mg daily. * Dr. Carl Major Will resume neurology service from the morning.
--- NOTE | 2021-03-23 08:46 | MR ---
EXAMINATION TYPE: MR brain wo/w con DATE OF EXAM: 03/23/2021 COMPARISON: CT brain 03/21/2021 HISTORY: AMS CONTRAST: Performed utilizing 10 mL intravenous Gadavist gadolinium contrast. TECHNIQUE: Multiplanar, multiecho imaging on a 3.0 Batsheva magnet is performed through the brain. Stud y is performed within 24 hours of arrival to the hospital. The craniovertebral junction is normal. The pituitary is normal. Diffusion-weighted imaging is performed. No abnormal hyperintensity is present to suggest an acute i ntracranial infarct or acute ischemic change. Signal within the brain appears normal. No suspicious T2 hyperintensities or areas of abnormal enhanc ement are evident. Ventricles and sulci are appropriate for the patient age. IMPRESSIONS: 1. Normal pre and postcontrast MRI brain
[2021-03-23] MEDS ORDERED: lamoTRIgine 100 MG TAB PO SCH (09:00)
--- NOTE | 2021-03-23 09:15 | CONS ---
CONSULTATION DATE OF SERVICE: 03/22/2021. PURPOSE FOR CONSULTATION: Evaluate for altered mental status and possible CVA. HISTORY OF PRESENTING ILLNESS: The patient is a 60-year-old male. As with the previous evaluation, the patient was not able to provide any information. His provided all of the information regarding his current situation. As noted previously, he has had significant decline in function in the last 4 to 5 days, where he has unusual and disorganized behavior. His noted that he started slowing down in his speech, where he would not finish sentences. He was not functioning in a basic way at home. She noted these problems began perhaps on Tuesday, though possibly earlier than that. She noted on he seemed to be doing a little better, though he continued to have problems. He would have outbursts where he would get very loud. He could go from outbursts of laughing to outbursts of crying, both in an uncontrollable manner. On and Tuesday he was late for work, which was very unusual for him. His noted evening at dinner he would just have behavior of staring in space. On Tuesday he was only minimally responding to her. He was making odd comments such as, "I am a loser," and "I am going to quit my job." He was having difficulty following basic directions. In his history it is noted that he has had a general decline in his overall function over the last year following hip replacement surgery last March. Apparently he was laid up for about two months. Once he got back into his normal function he was showing less energy and motivation than was his general manner. Tuesday night he did not sleep most of the night. He had talked about sting operations and kept saying, "I know who did it." His notes that a departmental secretary at work noted that for perhaps the last week or last couple of weeks he was showing paranoid thinking. Since his changes on Tuesday he would have behavior where out of the blue he would start crying very intensely. He would have episodes where he would blurt out individual words that had no apparent connection with one to the other. He generally was having more problems in the morning and to some extent more problems in the evening time. His notes that going back over the last few weeks and over the last few months, she had not been noting any significant changes or difficulties. On the weekend prior to this current situation, he spent three days on [place] and was communicating appropriately and functioning pretty much at his baseline. Overall, the only changes that he has had longer-term are that since his hip surgery he has shown some physically slowing; he has appeared less motivated, especially in the last few months or longer, where he would perhaps sit on the couch and do very little. His also noted in the last year that he has had increasing sedation where he can easily fall asleep or take naps in the day. He has had issues with sleep apnea, though he does not always show that in the sleep that he has. Typically he is sleeping from about 10 at night until 6 in the morning. His notes that he has had a long history of high anxiety. In the past years he has had some episodes where he may get more intense in his functioning. He has had phases where he will seem to have elevated moods and will do things such as have impulsive spending. It is noted that over the last 2 to 3 years, the patient has been on lamotrigine. It is unclear what the indication for lamotrigine has been other than his indicating that it seems to stabilize his mood. She says if he does not take it or missed doses, he starts getting into episodes of agitation. Other than being on lamotrigine for some type of mood issues, the patient has not had other formal treatment with other psychotropic medications, nor has he been specifically diagnosed with mood disorder or thought disorder. He has been working in his current position for about 25 years and apparently has not had any significant problems in his work performance up until just in the past 5 days. His 's observations about his current situation as well as his functioning within the last year seem to parallel his neurologic exam, where he has not demonstrated any abnormal movements or general function. There has been no significant change in ambulation or general physical function. His only current psychotropic medication is lamotrigine 150 mg a day. MENTAL STATUS EXAM: Patient was sitting in his room. He had somewhat of a staring gaze. Most of the time he seemed to have a slight smile on his face. When I asked questions, he would show some kind of slight squinting or grimacing, though mostly he seemed to smile. When I would ask questions he would seem to stare, though made very little effort to answer questions. He did respond to a few cognitive questions. He was able to say it was Tuesday. When I asked him where he was, he said "[place]." Both his and I asked him numerous times how old he was, and he did not respond to that, though he ultimately stated his birthday was 1960. He had past experience, and his asked in how long he had been in the . He was able to say that he was in the [employer] for 12 years and [employer] for 11-/2 years, which she confirmed as accurate. It is noted that some of the time when I would ask questions he would give apparent flippant responses. For example, when asked how long he was in the , one response was "too long." When asked who his boss was at work, he made the statement that his was or his departmental secretary. Toward the end of the interview, which lasted about an hour, the patient began getting restless. He was sitting in a lounge chair with the foot rest up. He kicked the foot rest down. He then started kicking his feet back and forth against the chair. He seemed to move as if he was trying to prepare to stand up, though he did not actually make an effort to stand. For the most part throughout the interview he said little and mostly was silent with a staring gaze and a fixed smile on his face. ASSESSMENT: This 60-year-old male has significant alteration in mental status. Whether or not he has an underlying neurologic condition as a primary issue remains to be seen. He seems to have fairly reasonable orientation, though showing significant difficulties with communication and initiating words. From a psychiatric standpoint, some possibilities could include bipolar disorder or general mood disorder with psychotic features. His history of having episodes of quite pronounced impulsive behavior that would be outside his baseline could be an early indication of some bipolar issues. His current functioning, where he has a rapid mood changes from laughing to distress, would also be supportive of the diagnosis of either bipolar disorder or general mood disorder with psychosis. The difficulty he is having with communications could be suggestive of catatonia, given the extreme difficulties he is having with any level of communication whatsoever. The fact that he is able to demonstrate that he has basic orientation while at the same time is essentially mute except for blurting out individual random words would fit in a picture of catatonia. Certainly some of the paranoid statements he has made would further suggest psychosis. At this point, I will increase his lamotrigine from 150 mg a day up to 100 mg twice a day, given that he has shown some benefit in terms of mood issues on lamotrigine. The simplest first step would be to titrate up on lamotrigine to see if there is any benefit. I will add Zyprexa 5 mg three times a day p.o. or IM as a p.r.n. medication for agitation. The indication for Zyprexa would be for possible bipolar song as well as for possible psychosis. If he does require Zyprexa and shows some reasonable response, there might be consideration for starting a regular dose. I would consider a trial dosing of IM Ativan to assess for the possibility of catatonia. I advised Nursing to call me with updates, especially if he receives p.r.n. Zyprexa. I will continue to follow. MMCASTILLOL / IJN: [id number] /
[2021-03-23] MEDS ORDERED: LORazepam 1 MG TAB PO STA ×2 (10:38→14:47)
[2021-03-23 11:00] LABS: Basophils % (A) 1 %; Eosinophils # (A) 0.2 k/uL (0-0.7); Eosinophils % (A) 3 %; HCT 39.5 % (39.0-53.0); HGB 13.1 gm/dL (13.0-17.5); Lymphocytes # (A) 1.4 k/uL (1.0-4.8); Lymphocytes % (A) 19 %; MCH 30.8 pg (25.0-35.0); MCHC 33.2 g/dL (31.0-37.0); MCV 92.7 fL (80.0-100.0); Mean Platelet Volume 6.9; Monocytes # (A) 0.4 k/uL (0-1.0); Monocytes % (A) 6 %; Neutrophils # (A) 5.4 k/uL (1.3-7.7); Neutrophils % (A) 71 %; Platelet Count 282 k/uL (150-450); RBC 4.26 m/uL (4.30-5.90); RDW 11.8 % (11.5-15.5); WBC 7.6 k/uL (3.8-10.6)
[2021-03-23 11:09] LABS: Albumin 3.9 g/dL (3.5-5.0); Calcium 9.6 mg/dL (8.4-10.2); Potassium 4.7 mmol/L (3.5-5.1); Total Protein 6.8 g/dL (6.3-8.2)
[2021-03-23 11:41] VITALS: PULSE 76; RESP 16
--- NOTE | 2021-03-23 13:04 | P.PN ---
Subjective Progress Note Date: 03/23/21 I am Seeing the patient for the first time her neurological management. The please refer to Dr. Lenz's note for further details. Patient is accompanied by his friend and feels somewhat better. He denies of any headache, focal weakness, numbness, visual disturbance. Objective - Vital Signs Vital signs: Vital Signs Temp 98.7 F 03/23/21 07:50 Pulse 96 03/23/21 07:50 Resp 15 03/23/21 07:50 BP 153/85 03/23/21 07:50 Pulse Ox 96 03/23/21 07:50 Intake & Output 03/22/21 03/23/21 03/23/21 18:59 06:59 18:59 Intake Total 420 2600 180 Balance 420 2600 180 Weight 104.4 kg Intake: IV 1200 Sodium Chloride 0.9% 1, 1200 000 ml @ 100 mls/hr IV . Q10H CHANTAL Rx#:[id number] Oral 420 1400 180 Other: # Voids 2 4 2 - Exam GENERAL: The patient is sitting in a recliner chair having his lunch and is not in acute distress. NEUROLOGICAL: Higher mental function: The patient is awake, alert, oriented to self, place and time. Patient is following simple commands. No aphasia and no neglect. Cranial nerves: The pupils are round, equal and reactive to light and accommodation. Visual lr are full to confrontation throughout. Extraocular movement is intact no nystagmus is noted. Facial sensation is normal to touch throughout. The facial strength is normal throughout. Hearing is normal bilaterally to hand rub. Tongue is midline and moved [id number] without any difficulty. No dysarthria is noted. Shoulder shrug is normal bilaterally. Motor: Gait is deferred. The strength is 5 over 5 throughout. Normal tone and bulk. Cerebellum: Normal finger to nose bilaterally. Sensation: Sensation is normal to touch throughout. Reflexes (right/left): 2+ throughout. Plantars are downgoing bilaterally. WORK-UP: TSH is 1.55 year Folate is 14.3. Serum vitamin B12 is 412 AST is 27 and ALT of 14 Lipid panel is struggled of 86, cholesterol is 104 4, LDL is 75 and HDL 51. Martinez virus PCR was not detected that. Syphilis antibody was nonreactive Urinalysis is negative for urinary tract infection MRI of the brain with and without contrast is reported as normal - Labs CBC & Chem 7: 03/23/21 10:32 03/23/21 10:32 Labs: Abnormal Lab Results - Last 24 Hours (Table) 03/23/21 03/23/21 Range/Units 10:32 10:32 RBC 4.26 L (4.30-5.90) m/uL Chloride 108 H (98-107) mmol/L Glucose 100 H (74-99) mg/dL Assessment and Plan Assessment: * This is a 60-year-old male with 3 day history of acute onset of altered mental status, paranoia with delusions. Patient neurological examination is nonfocal. However he has a very flat affect, blurts out sentences randomly, not related to the situation. MRI Brain is negative for stroke. No signs of infection. Possible bipolar per psychiatry team or general mood disorder with psychiatric feature * Hypertension * Hyperlipidemia * Obesity with BMI of 36.3. Plan: From Neurological perspective the patient doesn't have a stroke and the we'll defer the use of antiplatelet and statin use if needed to the primary team but that she doesn't have a stroke or TIA. Psychiatry is on board We'll defer the rest of the medical management to primary team. The plan is discussed with the nurse. There is no further neurological work-up. Neurology will sign off. Please reconsult if needed. Carl Major M.D. Neuro-hospitalist Time with Patient: Less than 30
--- NOTE | 2021-03-23 15:42 | CONS ---
CONSULTATION DATE OF SERVICE: 03/23/2021 PURPOSE FOR CONSULTATION: Evaluate for altered mental status and possible CVA. INTERVAL HISTORY: Patient has continued to have some ups and downs. It is noted that the patient has received some p.r.n. Zyprexa for restlessness and agitation. It is not clear that he got much benefit from that. At 11:30 last night he received Ativan 1 mg. Nursing indicates that he slept fairly well last night and was able to sleep through a good part of the night. Staff indicated that this morning he was restless and still not communicating very well. He then received 0.5 mg of Ativan at 8:00 am prior to getting his MRI. I saw the patient at approximately 9:00 am and it is noted that he had a significant change in his mental status where he was able to communicate appropriately and had a very fluid and spontaneous conversation. I talked to the patient's and she confirmed that he was having restlessness earlier in the morning and also had struggles with communication as he had been having. After receiving the morning dose of Ativan she noted that his thoughts were much clearer. When I talked to the patient he was spontaneous and interactive. He had a calm manner and was able to speak very clearly about his current situation. He was well oriented and was aware of circumstances and surroundings. He was able to speak in a very fluid an appropriate manner with normal intonation. He generally was in a fairly good mood. He smiled some. He made some joking comments. He was not distressed in any way. He had a calm manner and was not restless. ASSESSMENT: I would diagnosis the patient with catatonia. He has shown a positive response to Ativan challenge. At this point I will start the patient on Ativan 1 mg q.4 hours. He will get a dose this morning and then get another dose in four hours. I will re- evaluate him later in the day. I anticipate that catatonia ends up being the most likely immediate diagnosis for his mental status change. I will continue him on lamotrigine. The dose has been increased to 100 mg twice a day. I would look to make a determination as to appropriate dosing of Ativan. He likely will need to be continued on Ativan for at least a number of days or weeks. In general, patients who respond appropriately to catatonia with Ativan are able to move away from Ativan to other psychotropics. Lamotrigine may be sufficient for him. I would look to have a referral to Psychiatry in outpatient followup given the more complex nature of his condition. I will continue to follow. MMODL / IJN: [id number] /
[2021-03-23 15:46] VITALS: BP 120/81; TEMP 97.5
--- NOTE | 2021-03-23 19:06 | P.DS ---
Providers Date of admission: 03/21/21 03:16 Expected date of discharge: 03/23/21 Attending physician: Deandre Sarmiento Consults: 03/21/21 03:16 Consult Physician Routine Consulting Provider: Benjamin Lenz Consult Reason/Comments: cva Do you want consulting provider notified?: Yes 03/21/21 13:57 Consult Physician Routine Consulting Provider: Jaison Turner Consult Reason/Comments: flat affect, AMS, ?depression w psychosis Do you want consulting provider notified?: Yes Primary care physician: Franklin Coppola [facility] Hospital Course: This is a pleasant 60 years old male with past medical history of hypertension, hyperlipidemia. Patient is accepted from outside facility for evaluation by neurology regarding stroke. Patient has been acting increasingly strange for the last 4 days both by work and his 's standards. Speaking inappropriately saying things at all makes sense laughing and chronic and can sometimes even crying uncontrollably. Patient was transferred from [facility] for possible CVA/altered mental status, Versus a strange behavior. Patient is poor historian and information were obtained with the help with his at bedside. She states this started l ast Tuesday about 3-4 days ago, where he stopped treating his vital which usually he does. He wasn't eating and he did not wish TV and the news which is something he does every day. And when he went to work her coworkers called her stating that his behavioral strange as well. Patient sitting,, sometimes stairs at me and does not answer my questions promptly, I have to repeated 2-3 times. Sometimes his answers are unrelated to the questions. However he knows he is in [facility] he knew the date of the name of the president. He denies headache, weakness or numbness in extremities. No blurred vision or slurred speech. He is on Lamictal for mood and diagnosed with anxiety before, he is taken for many years and not sure if he has a psychiatrist. Hemodynamically stable, blood pressure this morning is 140/91 Labs including CBC, INR, BMP and liver enzymes are unremarkable. Urinalysis showed 1+ ketone otherwise is unremarkable. Salicylate is negative at 1.1, seroma: Less than 10. Urine drug screen is negative. Acetaminophen blood is less than 10. Coronavirus not detected EKG showing normal sinus rhythm at 85, no significant ST T changes. CTA of the head and neck is negative CT of brain: No acute process. Cerebral atrophy in Emergency room he received aspirin 325 mg. And admitted with a neurology consult. 03/22/2021 Today when I walked into the room patient was laughing loudly with no apparent reason, as per at bedside he would be reluctant for 5 minutes and then started crying hardly and with a few minutes he got very angry and argumentative without violence. Patient sitting in chair comfortable, he looks oriented to the place, time and person. He denies visual or auditory hallucination or delusions. He denies headache or weakness or numbness. No blurred vision. No chest pain or dyspnea. Vitals are stable. B12 is 412. Folate is 14.3 and TSH normal at 1.5 treponema pallidum antibodies were nonreactive. is sitting at bedside all time, and states if she is going to leave her son will come to visit with his father. Discussed with staff will need to consider a family leave. Patient does not look to have capacity to make medical decision. If patient tries to leave then he cannot leave AMA and need to be petitioned, discussed with the bedside nurse this morning echocardiogram showed ejection fraction of 60-65%. 03/23/2021: Sitting up in a chair. at the bedside. stated the patient had been at lot of stress at work. Patient has not been sleeping well for a very long time. Patient been asking the how to answer questions U leave the hospital. Patient is cleared by neurology. To be transferred to psychiatry floor. [facility] Department Supervisor: Dr. Mack from psychiatry Neurology On examination: VITAL SIGNS: [98.1, 76, 16, 120/81, 98% room air] GENERAL APPEARANCE: Sitting up in a chair, awake, anxious HEENT: Normal external appearance of nose and ear. Oral cavity normal EYES: Pupils equal. Conjunctiva normal. NECK: JVD not raised. Mass not palpable. RESPIRATORY: Respiratory effort normal. Lungs clear to auscultation. CARDIOVASCULAR: First and second sounds normal. No edema. ABDOMEN: Soft. Liver and spleen not palpable. No tenderness. No mass palpable. PSYCHIATRY: Alert and oriented x3. Mood and affect anxious . INVESTIGATIONS, reviewed in the clinical context: White count 7.6 hemoglobin 13.1 platelets 22 potassium 4.7 creatinine 1.11 B12, folate, TSH: All normal Treponema pallidum antibody: Not reactive Urine drug screen:Coronavirus COVID 19 [PCR]: Not detected: Not detected Assessment and plan: -Acute catatonia. Patient was seen by today. He is given Ativan challenge. Patient accepted to 3 W. psychiatry unit -Hyperlipidemia Crestor 20 mg daily at bedtime -Essential hypertension Lisinopril 20 mg daily hydrochlorothiazide 12.5 mg daily -Obesity BMI 37.1 Weight loss measures -Social stressors at work -Chronic insomnia Disposition: Transferred to 3 W. inpatient psychiatry unit. Patient Condition at Discharge: Fair Plan - Discharge Summary Discharge Rx Participant: No New Discharge Prescriptions: No Action lamoTRIgine [LaMICtal] 150 mg PO DAILY Rosuvastatin [Crestor] 20 mg PO HS Cetirizine HCl 10 mg PO DAILY PRN PRN Reason: Allergy Symptoms lisinopriL 20 mg PO DAILY hydroCHLOROthiazide [Hydrodiuril] 12.5 mg PO DAILY Ibuprofen [Motrin Ib] 800 mg PO Q8H PRN PRN Reason: Pain Discharge Medication List Cetirizine HCl 10 mg PO DAILY PRN 03/21/21 [History] Ibuprofen [Motrin Ib] 800 mg PO Q8H PRN 03/21/21 [History] Rosuvastatin [Crestor] 20 mg PO HS 03/21/21 [History] hydroCHLOROthiazide [Hydrodiuril] 12.5 mg PO DAILY 03/21/21 [History] lamoTRIgine [LaMICtal] 150 mg PO DAILY 03/21/21 [History] lisinopriL 20 mg PO DAILY 03/21/21 [History] Follow up Appointment(s)/Referral(s): Alexander Mar MD [REFERRING] - 1-2 days Discharge Disposition: TRANSFER TO PSYCH HOSP/UNIT
== END 2021-03-23 17:24 ==
LOC: EC 00:11 → 3SCARD 03:16 → INTOOBSV 03:16 → 3SCARD 14:07 → UNDODISIN 03-23 17:24
PROVIDERS: ADMIT Hospitalist; ATTEND Hospitalist
DX: F20.2 Catatonic schizophrenia (principal); F51.04 Psychophysiologic insomnia; E78.5 Hyperlipidemia, unspecified; I16.1 Hypertensive emergency; I10 Essential (primary) hypertension; E78.00 Pure hypercholesterolemia, unspecified; Z20.822 Contact with and (suspected) exposure to COVID-19; R45.87 Impulsiveness; G47.30 Sleep apnea, unspecified; F41.9 Anxiety disorder, unspecified; E66.9 Obesity, unspecified; Z68.37 Body mass index [BMI] 37.0-37.9, adult; Z71.3 Dietary counseling and surveillance; Z79.899 Other long term (current) drug therapy; Z87.891 Personal history of nicotine dependence; Z71.89 Other specified counseling; Z96.649 Presence of unspecified artificial hip joint
CPT/HCPCS: 99285; 96376 ×3; 96372 ×4; 96375; 96361; 96374; 36415; 93005; 93306; 97161; 97165; 80061; 80053 ×2; 80175; 84443; 82607; 82140; 82746; 82803; 84484; 85025 ×2; 85610; 85730; 81003; 86780; 80306; 80143; 80320; 87635; 80179; 70496; 70450; 70498; 70553; G0378 ×3; J2060 ×2; Q9967; J1644 ×3; A9585; 96360

== ENCOUNTER 2021-03-23 15:53 | Inpatient (IN) | payer BC ==
[2021-03-23] MEDS ORDERED: IBUPROFEN 800 MG TAB PO PRN (15:55)
[2021-03-23] MEDS ORDERED: LORATADINE 10 MG TAB PO PRN (15:55)
[2021-03-23] MEDS ORDERED: MAG HYDROX/AL HYDROX/SIMETH 30 ML CUP PO PRN (15:56)
[2021-03-23] MEDS ORDERED: MAGNESIUM HYDROXIDE 2,400 MG/10 ML CUP PO PRN (15:56)
[2021-03-23] MEDS ORDERED: ACETAMINOPHEN TAB 325 MG TAB PO PRN (15:56)
[2021-03-23] MEDS ORDERED: haloperidoL 5 MG TAB PO PRN (15:58)
[2021-03-23] MEDS ORDERED: LORazepam 2 MG/ML INJ IM PRN (15:58)
[2021-03-23] MEDS ORDERED: HALOPERIDOL LACTATE 5 MG/ML 1 ML VIAL IM PRN (15:58)
[2021-03-23] MEDS: LORazepam 1 MG TAB PO SCH ×3 (18:21→23:46)
[2021-03-23] MEDS: ATORVASTATIN 40 MG TAB PO SCH (20:44)
--- NOTE | 2021-03-23 23:08 | XR ---
EXAMINATION TYPE: XR knee complete LT DATE OF EXAM: 03/23/2021 COMPARISON: NONE HISTORY: Knee pain TECHNIQUE: 5 views FINDINGS: I see no fracture nor dislocation. Joint spaces are fairly normal. There is no sign of join t effusion. IMPRESSION: Negative left knee exam.
[2021-03-24] MEDS: LORazepam 1 MG TAB PO SCH ×2 (05:06→08:26)
[2021-03-24] MEDS: lisinopriL 20 MG TAB PO SCH (08:20)
[2021-03-24] MEDS: hydroCHLOROthiazide 12.5 MG CAP PO SCH (08:20)
[2021-03-24] MEDS: LORazepam 1 MG TAB PO PRN ×2 (08:22→08:25)
[2021-03-24] MEDS ORDERED: lamoTRIgine 100 MG TAB PO SCH (09:00)
[2021-03-24] MEDS: LORazepam 0.5 MG TAB PO SCH ×3 (11:45→20:23)
--- NOTE | 2021-03-24 17:00 | P.CONS ---
History of Present Illness - Reason for Consult Consult date: 03/24/21 Medical management Requesting physician: Ta Roque - Chief Complaint Mood outburst - History of Present Illness This is a 60 years old male with past medical history of hypertension, hyperlipidemia. Patient was initially accepted to [facility] on inpatient service on March 21 and was discharged on the to the psychiatry unit. Patient has been acting increasingly strange for the last 4 days both by work and his 's standards. Speaking inappropriately saying things at all makes sense laughing and chronic and can sometimes even crying uncontrollably. Patient was transferred from [facility] for possible CVA/altered mental status, Versus a strange behavior. Patient is poor historian and information were obtained with the help with his at bedside. She states this started last Tuesday about 3-4 days ago, where he stopped treating his vital which usually he does. He wasn't eating and he did not wish TV and the news which is something he does every day. And when he went to work her coworkers called her stating that his behavioral strange as well. He is on Lamictal for mood and diagnosed with anxiety before, he is taken for many years and not sure if he has a psychiatrist. Episodes included the following on the medical floor: When my colleague had walked into the room patient was laughing loudly with no apparent reason, as per at bedside he would be reluctant for 5 minutes and then started crying hardly and with a few minutes he got very angry and argumentative without violence. Patient sitting in chair comfortable, he looks oriented to the place, time and person. He denies visual or auditory hallucination or delusions. Per the patient has not been sleeping well for a long time. Also has stress at work. Patient was seen by neurology and patient's testing that included brain MRI, 2-D echocardiogram CT angiogram CT brain, screening for syphilis were all negative. Vitamin B12, folate, TSH all normal. Patient was seen by Dr. Major from neurology and cleared for discharge to psychiatry floor. Patient had an episode where he fell to the floor and his knees yesterday. X- ray did not reveal any fracture. Patient has a sitter. Received Ativan sleeping. Review of systems: Cannot be done patient rather sleepy up receiving Ativan. Past medical history to include: Hypertension, hyperlipidemia, anxiety Social history: . No smoking. Occasional alcohol. Employed Family history: Reviewed, noncontributory to presentation Physical examination: VITAL SIGNS: [98.7, 96, 15, 153/85, 96% on room air GENERAL: [BMI 37.1, laying in bed, tired]. EYES: [Pupils equal. Conjunctiva jenna]l. HEENT: [External appearance of nose and ears normal, oral cavity grossly normal]. NECK: [JVD not raised; masses not palpable]. HEART: [First and second heart sounds are normal; no edema]. LUNGS:[ Respiratory rate normal; clear to auscultation]. ABDOMEN: [Soft, nontender, liver spleen not palpable, no masses palpable]. PSYCH: Difficult to assess rather sleepy l. NEUROLOGICAL: [Cranial nerves grossly intact; no facial asymmetry, power and sensation grossly intact]. LYMPHATICS: [No lymph nodes palpable in the axilla and neck] . INVESTIGATIONS, reviewed in the clinical context: MRI of the brain, CT angiogram, CT brain.: All negative White count 7.6 hemoglobin 13.1 platelets 22 potassium 4.7 creatinine 1.11 B12, folate, TSH: All normal Treponema pallidum antibody: Not reactive Urine drug screen:Coronavirus COVID 19 [PCR]: Not detected: Not detected Assessment and plan: -Acute catatonia. Patient was seen by today. He is given Ativan challenge. -Given patient's symptomatology outbursts would like to rule out temporal epilepsy. Discussed with Dr. Major from neurology. He agrees with the same. EEG to be done while inpatient. -Hyperlipidemia Crestor 20 mg daily at bedtime -Essential hypertension Lisinopril 20 mg daily hydrochlorothiazide 12.5 mg daily -Obesity BMI 37.1 Weight loss measures -Social stressors at work -Chronic insomnia Continue current medications. On the EEG. Will discuss with Dr. Roque, the psychiatrist Thank you Dr. Edu flores Past Medical History Past Medical History: Hypertension Additional Past Medical History / Comment(s): HCL History of Any Multi-Drug Resistant Organisms: None Reported Past Surgical History: Joint Replacement Additional Past Surgical History / Comment(s): Rt hip Past Anesthesia/Blood Transfusion Reactions: No Reported Reaction Past Psychological History: Anxiety Smoking Status: Never smoker Past Alcohol Use History: Occasional Past Drug Use History: None Reported Medications and Allergies Home Medications Medication Instructions Recorded Confirmed Type Cetirizine HCl 10 mg PO DAILY PRN 03/21/21 03/23/21 History Ibuprofen [Motrin Ib] 800 mg PO Q8H PRN 03/21/21 03/21/21 History Rosuvastatin [Crestor] 20 mg PO HS 03/21/21 03/23/21 History hydroCHLOROthiazide [Hydrodiuril] 12.5 mg PO DAILY 03/21/21 03/23/21 History lamoTRIgine [LaMICtal] 150 mg PO DAILY 03/21/21 03/23/21 History lisinopriL 20 mg PO DAILY 03/21/21 03/23/21 History Allergies Allergy/AdvReac Type Severity Reaction Status Date / Time No Known Allergies Allergy Verified 03/23/21 18:26 Physical Exam Vitals: Vital Signs Temp Pulse Resp BP Pulse Ox 03/24/21 08:30 92 16 131/91 03/24/21 01:41 75 117/57 03/23/21 23:15 81/45 03/23/21 22:40 63 20 89/45 95 03/23/21 18:41 97.5 F L 83 20 158/103 99 Intake and Output 03/23/21 03/24/21 03/24/21 22:59 06:59 14:59 Other: Weight 104.2 kg
--- NOTE | 2021-03-24 18:07 | HP ---
HISTORY AND PHYSICAL DATE OF SERVICE: 03/24/2021 CHIEF COMPLAINT: The patient is a 60-year-old male. He resides with his . He was admitted to the medical floor on 03/21 for altered mental status and transferred for follow-up care. CHIEF COMPLAINT: The patient had episodes of disorganized behavior, mutism with inability to communicate, and uncontrollable outbursts of both laughing and crying. HISTORY OF PRESENTING ILLNESS: The patient has not had a prior psychiatric hospitalization. He has had some mental health issues though has not been involved in formal mental health care. He has been on Lamictal 150 mg a day for the last few years, which apparently helps with mood swings. He was essentially in his usual state of health until this past Tuesday, when he started having communication difficulties. It was first noticed by his and others that he was slowing down in his speech. He was having trouble finishing his speech. He would have outbursts where he would get very loud and might yell out individual words without much connection from one word to the next. Between that, he would have periods where he had difficulty initiating speech. He was able to go to work on . On Tuesday, though, he apparently was gradually showing increasing difficulties with his general function. On his noted at suppertime that he had periods where he just sat and stared and would not respond to people around him. On Tuesday he was making unusual statements about seeing himself in a very negative way. The legal secretary receptionist at work noted in the last several days that he was making paranoid statements and started talking about sting operations and knowing who may have been involved. He may have been having some subtle changes in this direction over the last few weeks, though during the previous weekend before his admission, he was at [facility] for 3 days and showed no significant change in his function, either physically or mentally. He was able to walk around and engage with his and friends without difficulty. He was able to communicate appropriately. His has noted that he had surgery last March for hip replacement. Since then he generally had seemed to slow down some in his physical functioning. She said prior to that he was always very active and then showed less of that after recovering from surgery. Over the last several months he was showing some decrease in motivation. In general his sleep pattern was fairly stable. He has had some episodes in the past where he would get elevated mood and might go on spending sprees. This generally would be something that would be an occasional episode of this to a limited extent. He has been on Lamictal for 2 to 3 years. His says if he misses that he will have some mood issues. There is no indication that he has hallucinations or delusional thinking. His describes him as always being a fairly anxious person and at times overly responsive to stress. While he was on the medical floor he had a neurologic evaluation, including MRI. The neurologic evaluation was unremarkable. MRI showed normal pre- and post-contrast MRI brain. It is noted that when I saw him in consultation on 03/21, the patient was barely able to communicate. He would often sit and stare. When questions were asked, it might take him a minute or longer just to get out one or two words. Much of the time his responses were not connected to the questions asked. On occasion he did answer some questions that demonstrated he was oriented. He was able to state the day of the week. He was asked about his background. After much hesitancy, he was able to say that he was in the [employer] for 12 years and the [employer] for 11. His confirmed that that was accurate. He knew basic facts, though sometimes it took a considerable amount of time and repeated questions to get one response from him. While he was on the medical floor he was that having episodes where he would get restless and somewhat agitated, improved with p.r.n. doses of Ativan. He was assessed as possibly having some psychotic features, perhaps related to depression or bipolar disorder. He was given some limited doses of Zyprexa though did not show much response at all. He received Ativan 1 mg around 11:30 in the evening on 03/22 and was able to sleep through the night with that. He was somewhat restless in the morning. He was communicating poorly in the morning. At 8:30 in the morning he received 0.5 mg of Ativan. He had his MRI at 9 p.m. Soon after he returned from the MRI, it was noteworthy that in my follow- up consultation, the patient was communicating perfectly normally. He had a very fluid and connected conversation without any difficulties with communication. He was felt to have a diagnosis of catatonia, which may be connected to underlying mood disorder. He was started on Ativan, which has been titrated based on tolerability. The patient is transferred and admitted to the psychiatric unit for further care. SUBSTANCE USE HISTORY: None reported. PAST MEDICAL HISTORY: Hypertension. I refer the reader to the admission H and P of Dr. Conner of 03/21/2021 and neurology consultation of Dr. Lenz of 03/21/2021 for further details. FAMILY AND SOCIAL HISTORY: Patient is and lives with his . 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 MENTAL STATUS EXAM: The patient has been seen a few different times on the unit. He was last seen in his room lying in bed. He gave good eye contact. Psychomotor activity was normal. He answered questions appropriately with direct responses. His thoughts were clear, coherent and goal-directed. He was spontaneous and interactive. His affect was in a reasonable range. He smiled. He had a friendly manner. His mood was even. He did not appear to be distressed. There was no indication of thought disorder. There was no indication of thoughts of harm to self or others. On cognitive exam, the patient was oriented and alert. He knew the day and the date. He knew where he was. He could name the president. He gave other answers to detailed questions. He could give the days of the week in reverse order without hesitation. Insight and judgment were fair, fund of knowledge average. PHYSICAL EXAM: As per Dr. Conner. ASSESSMENT: This 60-year-old male presented with mood instability, possibly relating to underlying mood disorder, and this may have led into the patient developing catatonia where he had progression over 4 or 5 days to the point where he was not able to communicate. He has responded in a pronounced manner to Ativan to where he is able to communicate appropriately with stable cognitive function. Whether or not he has an underlying issue with depression or bipolar disorder remains to be seen. There are concerns for possible temporal lobe epilepsy as an alternative diagnosis. Strengths include the patient's [place] intelligence and long-term stable functioning. Weakness includes history of anxiety. DIAGNOSIS: 1. Catatonia. 2. Rule out mood disorder. 3. Rule out temporal lobe epilepsy. 4. Hypertension. RECOMMENDATIONS: Patient will be admitted for comprehensive medical, psychiatric and psychosocial evaluation. We will engage the patient in individual and group therapeutic activities. At this point he will be started on Ativan 0.5 mg q.4 hours. We will be monitoring closely. We will look to reduce the dosing or frequency based on any issues of sedation and/or ataxia. The dose may need to be increased on the basis of catatonic symptoms. His Lamictal will be increased to 100 mg twice a day. The primary focus at this point will be to adjust his Ativan for appropriate management of his catatonia and assess further for underlying mood disorder. We will focus on stabilization and discharge planning. MMTIFFANIE / MARCELLN: [id number] /
[2021-03-24] MEDS: lamoTRIgine 100 MG TAB PO SCH (20:23)
[2021-03-24] MEDS: ATORVASTATIN 40 MG TAB PO SCH (20:24)
[2021-03-25] MEDS: LORazepam 0.5 MG TAB PO SCH ×6 (04:43→20:31)
[2021-03-25] MEDS: hydroCHLOROthiazide 12.5 MG CAP PO SCH (07:58)
[2021-03-25] MEDS: lamoTRIgine 100 MG TAB PO SCH ×2 (07:59→20:31)
[2021-03-25] MEDS: lisinopriL 20 MG TAB PO SCH (07:59)
--- NOTE | 2021-03-25 11:35 | PN ---
PROGRESS NOTE DATE OF SERVICE: 03/25/2021. CHIEF COMPLAINT: The patient had episodes of disorganized behavior, mutism with inability to communicate, and uncontrolled outbursts of both laughing and crying. INTERVAL HISTORY: Patient has been doing fairly well. He had a quiet day yesterday. He spent some of the time in bed. He tended to be somewhat sedated, likely secondary to medications. He has been able to communicate appropriately. He attended three out of five groups yesterday. He is a little unsteady on his feet. He slept well last night. Today he has been up. He seems to be doing a little better in regard to ambulation. He has been able to have 1:1 discontinued. He attended the first group today. He seems to be showing improvement in mood and function. I had an extensive telephone call with the patient's reviewing his condition and treatment plan. He seems to be tolerating his medications well. It is noteworthy in talking both to the patient and his that he had gotten on lamotrigine about 3 years ago or possibly longer. The patient himself was able to say that he did much better with his mood since he has been on lamotrigine. He made the comment that he recalled at different times that his children have told him how much better he has done since he has been on lamotrigine. His noted that, going back before he was on the medication, at times he was "a basket case." He would often have persistent anger and be yelling at his children. Often this would come up for no reason at all. From the patient's standpoint, he was able to describe some periods where he does get into spending sprees. His shared that in the patient's family there is a history of bipolar disorder, though she did not spell out details. MENTAL STATUS EXAM: Patient sat with a little restlessness. He gave fairly good eye contact. He was able to walk down to the office without much difficulty, though he walks with a slightly guarded gait. He answered questions appropriately. His thoughts were clear and coherent. At times he needed to think a little before answering some cognitive questions, but he was able to come up with appropriate responses. He was able to give some history of recent events that were accurate. He was not able to recall the behavior he had where he was not able to communicate. When I explained some of what was observed, he was slightly surprised with that. His affect was in a reasonable range. His mood was even. He did not appear to be distressed. There was no indication of thought disorder. He was oriented and alert. He knew it was Tuesday. He knew he was in [facility]. He was able to understand that he had been transferred from the medical floor, though he was uncertain as to the purpose for coming to the psychiatric unit. He was able to tell me the events he had the weekend prior to his onset of this condition. He was able to tell me about past treatment issues. He was able to communicate in a fluid and appropriate manner. ASSESSMENT: I will continue the current diagnosis and treatment plan. The patient will continue Ativan as specific treatment for catatonia. At this point he will be on 0.5 mg four times a day through the daytime. He will not take Ativan at night or through the night. I would look tomorrow to see if we can reduce the dose to 0.5 mg three times a day. The issue with adjusting Ativan is to decrease to the least dose to decrease risks relating to ambulation and sedation, though maintain him on an adequate dose to resolve catatonic symptoms. He will continue lamotrigine. The dose has been increased from 150 mg a day up to 100 mg twice a day. In the long run, lamotrigine may be the most effective treatment to help him remain stable without having recurrence of catatonia. I talked to the patient's about the possibility that he might be on Ativan over the next 1 to 2 months though gradually could be tapered off. There is a possibility that an increase in lamotrigine could be beneficial if he does show some indications of return of some catatonic symptoms. I would anticipate discharging the patient by Tuesday. LEODAN / MARCELLN: [id number] /
--- NOTE | 2021-03-25 20:17 | P.PN ---
Progress Note - Text Progress Note Date: 03/25/21 - Chief Complaint Mood outburst This is a 60 years old male with past medical history of hypertension, hyperlipidemia. Patient was initially accepted to [facility] on inpatient service on March 21 and was discharged on the to the psychiatry unit. Patient has been acting increasingly strange for the last 4 days both by work and his 's standards. Speaking inappropriately saying things at all makes sense laughing and chronic and can sometimes even crying uncontrollably. Patient was transferred from [facility] for possible CVA/altered mental status, Versus a strange behavior. Patient is poor historian and information were obtained with the help with his at bedside. She states this started last Tuesday about 3-4 days ago, where he stopped treating his vital which usually he does. He wasn't eating and he did not wish TV and the news which is something he does every day. And when he went to work her coworkers called her stating that his behavioral strange as well. He is on Lamictal for mood and diagnosed with anxiety before, he is taken for many years and not sure if he has a psychiatrist. Episodes included the following on the medical floor: When my colleague had walked into the room patient was laughing loudly with no apparent reason, as per at bedside he would be reluctant for 5 minutes and then started crying hardly and with a few minutes he got very angry and argumentative without violence. Patient sitting in chair comfortable, he looks oriented to the place, time and person. He denies visual or auditory hallucination or delusions. Per the patient has not been sleeping well for a long time. Also has stress at work. Patient was seen by neurology and patient's testing that included brain MRI, 2-D echocardiogram CT angiogram CT brain, screening for syphilis were all negative. Vitamin B12, folate, TSH all normal. Patient was seen by Dr. Major from neurology and cleared for discharge to psychiatry floor. Patient had an episode where he fell to the floor and his knees yesterday. X- ray did not reveal any fracture. Patient has a sitter. Received Ativan sleeping. 03/25/2021. Patient is getting scheduled Ativan. Looks more stable right now. Answering questions appropriately. Has been walking the hallways. No sitter. He has been on Ativan. Lamictal. He is currently being treated for catatonia. I spoke to the it security project manager been about getting the EEG done. This is being scheduled for tomorrow. Patient doesn't have much recollection of the outbursts episodes he's had. Review of systems: Was done for constitutional, cardiovascular, GI, pulmonary. relevant finding as above Active Medications Acetaminophen (Acetaminophen Tab 325 Mg Tab) 650 mg PO Q4HR PRN PRN Reason: Pain/Discomfort Al Hydroxide/Mg Hydroxide (Mag Hydrox/Al Hydrox/Simeth 30 Ml Cup) 30 ml PO Q4HR PRN PRN Reason: GI Upset Atorvastatin Calcium (Atorvastatin 40 Mg Tab) 40 mg PO HS [facility] Last Admin: 03/24/21 20:24 Dose: 40 mg Documented by: Hydrochlorothiazide (Hydrochlorothiazide 12.5 Mg Cap) 12.5 mg PO DAILY [facility] Last Admin: 03/25/21 07:58 Dose: 12.5 mg Documented by: Ibuprofen (Ibuprofen 800 Mg Tab) 800 mg PO Q8H PRN PRN Reason: Pain Lamotrigine (Lamotrigine 100 Mg Tab) 100 mg PO BID [facility] Last Admin: 03/25/21 07:59 Dose: 100 mg Documented by: Lisinopril (Lisinopril 20 Mg Tab) 20 mg PO DAILY [facility] Last Admin: 03/25/21 07:59 Dose: 20 mg Documented by: Loratadine (Loratadine 10 Mg Tab) 10 mg PO DAILY PRN PRN Reason: Allergy Symptoms Lorazepam (Lorazepam 1 Mg Tab) 1 mg PO TID PRN PRN Reason: Anxiety, Agitation Lorazepam (Lorazepam 2 Mg/Ml Inj) 1 mg IM TID PRN PRN Reason: Agitation or Acute Anxiety Lorazepam (Lorazepam 0.5 Mg Tab) 0.5 mg PO Q4H [facility] Stop: 03/26/21 06:00 Last Admin: 03/25/21 16:06 Dose: 0.5 mg Documented by: Lorazepam (Lorazepam 0.5 Mg Tab) 0.5 mg PO TID [facility] Magnesium Hydroxide (Magnesium Hydroxide 2,400 Mg/10 Ml Cup) 2,400 mg PO DAILY PRN PRN Reason: Constipation Past medical history to include: Hypertension, hyperlipidemia, anxiety Social history: . No smoking. Occasional alcohol. Employed Family history: Reviewed, noncontributory to presentation Physical examination: VITAL SIGNS: 97.9, 62, 20, 137/74, GENERAL: Sitting up, comfortable]. EYES: [Pupils equal. Conjunctiva jenna]l. HEENT: [External appearance of nose and ears normal, oral cavity grossly norm al]. NECK: [JVD not raised; masses not palpable]. HEART: [First and second heart sounds are normal; no edema]. LUNGS:[ Respiratory rate normal; clear to auscultation]. ABDOMEN: [Soft, nontender, liver spleen not palpable, no masses palpable]. PSYCH: Answering questions appropriately Patient was seen walking in the hallway. Gait normal . INVESTIGATIONS, reviewed in the clinical context: MRI of the brain, CT angiogram, CT brain.: All negative White count 7.6 hemoglobin 13.1 platelets 22 potassium 4.7 creatinine 1.11 B12, folate, TSH: All normal Treponema pallidum antibody: Not reactive Urine drug screen:Coronavirus COVID 19 [PCR]: Not detected: Not detected Assessment and plan: -Acute catatonia. : Improving On Lamictal and Ativan.. -Given patient's symptomatology outbursts would like to rule out temporal epilepsy. Discussed with Dr. Major from neurology. He agrees with the same. EEG to be done while inpatient. -Hyperlipidemia Crestor 20 mg daily at bedtime -Essential hypertension Lisinopril 20 mg daily hydrochlorothiazide 12.5 mg daily -Obesity BMI 37.1 Weight loss measures -Social stressors at work -Chronic insomnia Continue current medications. EEG. Other medications to continue. Thank you Dr. Roque
[2021-03-25] MEDS: ATORVASTATIN 40 MG TAB PO SCH (20:31)
[2021-03-26] MEDS: LORazepam 0.5 MG TAB PO SCH ×4 (01:32→20:06)
[2021-03-26] MEDS ORDERED: LORazepam 0.5 MG TAB PO SCH ×2 (09:00→21:00)
[2021-03-26] MEDS: lisinopriL 20 MG TAB PO SCH (09:09)
[2021-03-26] MEDS: lamoTRIgine 100 MG TAB PO SCH ×2 (09:09→20:06)
[2021-03-26] MEDS: hydroCHLOROthiazide 12.5 MG CAP PO SCH (09:09)
--- NOTE | 2021-03-26 10:11 | P.PN ---
Progress Note - Text Progress Note Date: 03/26/21 Interval History: Patient was seen sitting in his room working on different worksheets and was d irectable and agreeable to speak with greeting card writer in the office. Patient appeared to be for the most part directable and attempting to cooperate with the interview. He was a fairly poor historian and claims that he does not know why he is not hospital. He believes that he is on the psychiatric unit because "there are no beds in the other hospital". She claims that he is doing better today. He did not appear to show any mood instability. She was fairly calm during interview. He states that he is sleeping fairly and going to groups. He claims that he was feeling depressed when he came into the hospital because they wouldnt give him support and people at work. He claims that he has a fair appetite and he has been taking his medications. At this time patient denies any suicidal or homical ideations, intent or plan. Patient denies any auditory, visual hallucinations. Patient denies any side effects from the medications and has been compliant with meds. He didn't know today's date and his location and his name. Mental Status Exam: General Appearance: Patient appears to be overweight, bald, stated age is alert, directable, and cooperative. Mildly confused at times Behavior: Patient is calmly seated without any agitated behavior. Appears to attempt to cooperate Speech: Patient's speech is fluent and nonpressured. Mood/Affect: Mood is improving mildly, affect is congruent and constricted. Suicidality/Homicidality: Patient denies having any suicidal or homicidal ideation intent or plan. Perceptions: Patient denies any visual hallucinations and denies any auditory hallucinations Though content/process: Rambles at times. Does not endorse any delusions or paranoia. Memory and concentration: AOX3, grossly intact for the purposes of this session Judgment and insight: Poor, Improving mildly Assessment Catatonia Plan: -Patient continues to meet criteria for inpatient psychiatric admission for symptom stabilization and safety. Patient has signed adult voluntary form and medication consent and was placed in patient's chart. -Medications: Continue with Ativan 0.5 mg 3 times a day for catatonia. Will need to titrate down as an outpatient. Continue Lamictal 100 mg twice a day for mood stabilization. -When necessary Ativan for agitation/aggression. -NRT - nicotine patch -SW on board for discharge planning. Encouraged the patient to participate in milieu. drop board worker to make contact with and likely discharge tomorrow
--- NOTE | 2021-03-26 14:57 | EEG ---
ELECTROENCEPHALOGRAM REPORT DATE OF SERVICE: 03/26/2021. CLINICAL HISTORY: This is a 60-year-old gentleman with altered mental status. The video EEG is obtained to evaluate for seizure epileptiform activity. RELEVANT MEDICATION: Unknown. EEG TYPE: A routine 21-channel EEG is performed with video using the 10/20 electrode placement system. DESCRIPTION: Wakefulness and drowsiness are obtained. During wakefulness there is a posterior- dominant rhythm of low to moderate voltage that is well modulated and well sustained of 8-8.5 hertz. During drowsiness there is slowing attenuation of the background activity. There is no physiological stage II sleep architecture. There is no focal slowing seen. Interictal and ictal is none. ACTIVATION PROCEDURE: Photic stimulation did evoke a posterior driving response at multiple flash frequencies. There is no abnormality during the photic stimulation. Hyperventilation was not performed. CLINICAL INTERPRETATION: This is a normal routine EEG. There are no focal slowing, epileptiform discharge or seizure on the EEG. Clinical correlation is recommended. MMTIFFANIE / MARCELLN: [id number] / MYRA
[2021-03-26] MEDS: ATORVASTATIN 40 MG TAB PO SCH (20:06)
[2021-03-27 06:01] VITALS: TEMP 97.3
[2021-03-27] MEDS: lisinopriL 20 MG TAB PO SCH (08:36)
[2021-03-27] MEDS: lamoTRIgine 100 MG TAB PO SCH (08:37)
[2021-03-27 08:38] VITALS: BP 134/74; PULSE 78; RESP 20
[2021-03-27] MEDS: hydroCHLOROthiazide 12.5 MG CAP PO SCH (08:39)
[2021-03-27] MEDS: LORazepam 0.5 MG TAB PO SCH (08:40)
--- NOTE | 2021-03-27 11:16 | P.DS ---
Providers Date of admission: 03/23/21 18:13 Expected date of discharge: 03/27/21 Attending physician: Jaison Turner MD Consults: 03/23/21 15:56 Consult Physician Routine Consulting Provider: Deandre Sarmiento Consult Reason/Comments: H&P and medical Do you want consulting provider notified?: Yes Primary care physician: Franklin Coppola - Discharge Diagnosis(es) (1) Catatonia Current Visit: Yes Status: Acute Priority: High Hospital Course: Admission HPI: Admission note was completed by Dr. Roque "the patient is a 60-year-old male. He resides with his . He was admitted to the medical floor on 03/21 for altered mental status and transferred for the following up care. The patient had episodes of disorganized behavior, mutism with inability to communicate, uncontrollable outbursts of both laughing and crying. The patient has not had a prior psychiatric hospitalization. He has had some mental health issues though has not been involved in formal mental healthcare. He has been on Lamictal 150 mg a day for the last few years, which apparently helps with mood swings. He was essentially in his usual state of health until this past Tuesday. When he started having communication difficulties. It was first noticed by his and other that he was slowing down his speech. He was having trouble finishing his speech. He would have outbursts where he would get very loud and might yell out individual words without much connection from one work. Between that he would have periods where he had difficulty initiating speech. He was able to go to work on . On Tuesday though he apparently was gradually showing increasing difficulties with his general function. On his noted at [facility] suppertime that he had periods where he just sat and stared and would not respond to people around him. On Tuesday he was able to make unusual statements without seeing himself in a very negative way. The police department secretary at work noted in the last several days that he was making paranoid statements and started talking about staying operations and knowing who may have been involved. He may have been having some subtle changes in his direction over the last few weeks though during the previous weekend before his admission he was at [employer] for 3 days and showed no significant change in his function, either physically or mentally. He was able to walk around and engage with his and friends without difficulty. He was able to communicate appropriately. His noted that he had surgery last March for hip replacement. Since then he generally had seemed to slow down in his physical functioning. She said prior to that he was also very active and then showed less of that after recovering from surgery. Over the last several months he was showing some decrease in motivation. In general his sleep pattern was fairly stable. He has had some episodes in the past where he would get elevated mood and might go on a spending spree. This generally would be something that would be on occasional episode of this to a limited extent. He has been on Lamictal for 2-3 years. His says if he misses that he will have some mood issues. There is no indication that he has hallucinations or delusional thinking. His describes him as always having a fairly anxious person and at times overly responsive to stress. While he was on the medical floor he had a neurological evaluation, including MRI. The neurological evaluation was unremarkable. MRI showed pre-and postcontrast MRI brain. It is noted that when I saw him in consultation on 03/21, the patient was barely able to communicate. He would often sit and stare. When questions are asked, it might take him a minute or longer just to get out one or 2 words. Much of the time his responses were not connected to the questions asked. On occasion he did answer some questions that demonstrated he was oriented. He was able to state that the day of the week. He was asked about his background. After much hesitancy he was able to say that he was in the [employer] for 12 years in [employer] for 11 years. His confirmed that this was accurate. He knew basic facts though sometimes it took a considerable amount of time and repeated questions to get one response from him. While he was on the medical floor he was that having episodes where he would get restless and somewhat agitated, improved with when necessary medications doses of Ativan. He was assessed and possibly having some physiologic features psychotic features, perhaps related to depression or bipolar disorder. He was given some limited doses of Zyprexa though did not show any response at all. He received 1 mg Ativan around 11:30 in the evening on 03/22 and was able to sleep through the night with that. He was somewhat restless in the morning. He was communicating poorly in the morning. At 8:30 in the morning he received 0.5 mg of Ativan he had his MRI at 9 PM soon after he returned from MRI it was noteworthy that in my follow-up consultation, the patient was communicating perfectly normal. He had a very fluid and connected conversation without any difficulties with communication. He was felt to have a diagnosis of catatonia which may be connected to underlying mood disorder. He was started on Ativan which has been titrated based on tolerability. The patient is a transferred and admitted to the psychiatric unit for further care." Hospital course: Upon admission to the unit patient was directable and agreeable to commence treatment and signed adult voluntary form. Patient got along well with other patients on the unit and followed unit protocol. Patient was compliant with the medications and denied any side effects throughout hospital course. Patient was started on Ativan 0.5 mg 3 times a day for catatonia and lamictal 100 mg bid for mood stabilization. Patient spoke of his stressors and engaged in therapy both group and individual. Patient was also seen by medical team for history and physical exam. Patient was seen by neurology prior to coming to the mental health unit for consultation though did not find any focal abnormalities on neurological examination, showing odd behavior and had a flat affect and did not think this was likely due to CVA or encephalitis. Patient had a echocardiogram completed on 03/21/21 which showed no aortic stenosis or regurgitation and mild pulmonic regurgitation no pericardial effusion. Patient also had a EEG on 03/26/21 which was a normal routine EEG and did not show any focal slowing epileptiform discharge or seizure activity. Patient also had an x-ray completed on 03/23 of his left knee which was negative. She had a computed tomography scan performed in the ER which showed cerebral atrophy and was followed up with an MRI of the brain with and without contracts which showed a normal pre-and po stcontrast MRI of the brain. Patient's B12, folate and TSH levels were within normal limits. Throughout the course of the hospitalization patient gradually improved with regards to mood lability, behaviors, sleep and returned back to their baseline level of functioning. On the day of discharge patient denied any suicidal or homicidal ideations intent or plan denied any auditory or visual hallucinations. Patient endorsed wanting to live for his future and family. The patient denied any access to guns or weapons. Patient denied any paranoia and did not endorse any delusions. Patient does not have a significant history of substance abuse however was counseled on abstaining from all substances including alcohol and marijuana. Patient was also counseled on the medications and need for regular compliance and was encouraged to follow-up with their outpatient appointment for mental health and also for primary care. Prior to discharge a family meeting will be arranged by social media developer to answer any questions and ensure safety upon discharge. Patient will be following up with a neurologist Dr. Courtney for continuation of care. Mental status exam: General Appearance: Patient appears to be overwieght, stated age is alert, pleasant, and cooperative. Patient is in no acute distress and has improved hygiene and grooming Behavior: Patient is calmly seated without any agitated behavior. Speech: Patient's speech is fluent and nonpressured. Mood/Affect: Patient reports their mood is "good", affect is congruent and euthymic. Suicidality/Homicidality: Patient denies having any suicidal or homicidal ideation intent or plan. Perceptions: Patient denies any auditory or visual hallucinations. Though content/process: There is no evidence of any delusional thought content and thought process is linear and goal-directed. Memory and concentration: AOX3, grossly intact for the purposes of this session. Can spell "WORLD" backwards correctly. Judgment and insight: chronically limited, however has improved with guarded prognosis Impression: Catatonia Mood disorder unspecified Plan: -Continue with discharge today as patient has improved and stabilized psychiatrically and is not currently an imminent threat to himself and/or others. Patient will remain at chronically elevated risk for harm to self and/or others due to his condition. -Continue medications: Ativan 0.5 mg cut down to twice a day dosing for 7 days then will be tapered down to 0.5 mg daily at bedtime for 7 days and then he will be need to be followed up by his neurologist. Continue Lamictal 100 mg twice a day for mood stabilization. -Patient was counseled on the need for medication compliance and appropriate follow-up at mental health and also primary care for medical issues. Patient verbalized understanding and agreed. -Social work to arrange for and conduct family meeting to ensure safety upon discharge and answer any questions/concerns. Social work also to arrange for patients follow up appointments with the neurologist for psychiatric and neurological care along with follow up with primary care provider. -Patient counseled on abstaining from recreational drugs and marijuana and alc ohol. Was informed/educated on the adverse effects on their physical and mental health. Patient verbally agreed and understood. -Patient was instructed to return to the hospital or seek immediate medical care if their psychiatric or medical symptoms do worsen or reoccur. Allergies Allergy/AdvReac Type Severity Reaction Status Date / Time No Known Allergies Allergy Verified 03/23/21 18:26 Vital Signs Temp 97.3 F L 03/27/21 06:00 Pulse 78 03/27/21 08:35 Resp 20 03/27/21 08:35 BP 134/74 03/27/21 08:35 Pulse Ox 96 03/27/21 06:00 Allergies Allergy/AdvReac Type Severity Reaction Status Date / Time No Known Allergies Allergy Verified 03/23/21 18:26 Patient Condition at Discharge: Stable Plan - Discharge Summary Discharge Rx Participant: No New Discharge Prescriptions: New LORazepam [Ativan] 0.5 mg PO DIRECTED #21 tab lamoTRIgine [LaMICtal] 100 mg PO BID 30 Days tab Continue Rosuvastatin [Crestor] 20 mg PO HS Cetirizine HCl 10 mg PO DAILY PRN PRN Reason: Allergy Symptoms lisinopriL 20 mg PO DAILY hydroCHLOROthiazide [Hydrodiuril] 12.5 mg PO DAILY Ibuprofen [Motrin Ib] 800 mg PO Q8H PRN PRN Reason: Pain Discontinued lamoTRIgine [LaMICtal] 150 mg PO DAILY Discharge Medication List Cetirizine HCl 10 mg PO DAILY PRN 03/21/21 [History] Ibuprofen [Motrin Ib] 800 mg PO Q8H PRN 03/21/21 [History] Rosuvastatin [Crestor] 20 mg PO HS 03/21/21 [History] hydroCHLOROthiazide [Hydrodiuril] 12.5 mg PO DAILY 03/21/21 [History] lisinopriL 20 mg PO DAILY 03/21/21 [History] LORazepam [Ativan] 0.5 mg PO DIRECTED #21 tab 03/27/21 [Rx] lamoTRIgine [LaMICtal] 100 mg PO BID 30 Days tab 03/27/21 [Rx] Follow up Appointment(s)/Referral(s): Franklin Coppola MD [Primary Care Provider] - 1 Week (Need to follow up regarding sleep Apnea and EEG.) Peggy Ley MD [Medical Doctor] - 1 Week Activity/Diet/Wound Care/Special Instructions: Activity and diet as tolerated. Avoid the use of street drugs and alcohol. Take all medications as prescribed. When you are in need of refills on your medications please contact your medical provider and/or outpatient psychiatrist to have this done. Please go to scheduled outpatient appointment for aftercare treatment. If symptoms return or become worse, call the crisis line at and/or go to the nearest emergency room for evaluation. Discharge Disposition: HOME SELF-CARE
== END 2021-03-27 12:25 | disposition home or self-care (01) | DRG 885 ==
LOC: 3MHU 18:13
PROVIDERS: ADMIT Psychiatry & Neurology Psychiatry; ATTEND Psychiatry & Neurology Psychiatry
DX: F20.2 Catatonic schizophrenia (principal); F39 Unspecified mood [affective] disorder; E66.9 Obesity, unspecified; I10 Essential (primary) hypertension; E78.5 Hyperlipidemia, unspecified; F41.9 Anxiety disorder, unspecified; Z68.37 Body mass index [BMI] 37.0-37.9, adult; F51.04 Psychophysiologic insomnia; R26.81 Unsteadiness on feet; Z79.899 Other long term (current) drug therapy; Z96.641 Presence of right artificial hip joint; W18.30XA Fall on same level, unspecified, initial encounter; Z81.8 Family history of other mental and behavioral disorders
CPT/HCPCS: 95819